=== PATIENT | male | born 1960 | race African-American/Black ===

== ENCOUNTER 2022-04-26 14:35 | Inpatient (IN) | payer OTHER ==
[2022-04-26] MEDS ORDERED: SODIUM CHLORIDE IV ONE (14:59)
[2022-04-26] MEDS ORDERED: PIPERACILLIN/TAZOB 4.5 GM 4.5 GM in DEXTROSE 5%-WATER 100 ML IVPB ONE (15:27)
[2022-04-26] MEDS ORDERED: ACETAMINOPHEN 1000 MG/100 ML BAG IVPB ONE (15:29)
[2022-04-26] MEDS ORDERED: LACTATED RINGERS SOLUTION 1,000 ML/1,000 ML INFUS.BAG IV SCH (15:30)
[2022-04-26] MEDS ORDERED: VANCOMYCIN/WATER 2 GM/400 ML PREMIX BAG IVPB ONE (15:30)
[2022-04-26] MEDS ORDERED: PIPERACILLIN/TAZOB 4.5 GM 4.5 GM/100 ML BAG IVPB ONE ×2 (15:42→15:48)
[2022-04-26] MEDS ORDERED: VANCOMYCIN/WATER FOR INJ (PEG) 2,000 MG/400 ML BAG IVPB ONE (15:43)
[2022-04-26] MEDS ORDERED: ACETAMINOPHEN INJECTION 100 ML IVPB ONE (15:48)
[2022-04-26 16:18] LABS: HEMATOCRIT 31.3 % (35.4-49); MCHC 31.9 g/dl (32.0-35.9); MEAN CELL VOLUME 91.1 fl (80-96); MEAN PLT VOLUME 8.1 fl (7.5-11.1); PLATELET COUNT 200 10^3/uL (134-434); RBC 3.43 M/mm3 (4.00-5.60); RDW 17.6 % (11.9-15.9); WHITE BLOOD COUNT 17.3 K/mm3 (4.0-10.0)
[2022-04-26 16:35] LABS: VENOUS BASE EXCESS -1.6 mmol/L (-2-2); VENOUS PCO2 51.2 mmHg (38-52); VENOUS PH 7.308 (7.310-7.410)
[2022-04-26 16:43] LABS: ALBUMIN 2.6 g/dl (3.4-5.0); CALCIUM 7.3 mg/dL (8.5-10.1)
[2022-04-26 16:44] LABS: BLOOD UREA NITROGEN 25.8 mg/dL (7-18)
[2022-04-26 16:46] LABS: CREATININE 2.8 mg/dL (0.55-1.3)
[2022-04-26 16:48] LABS: TOT PROT 8.1 g/dl (6.4-8.2)
[2022-04-26 17:24] LABS: ANISOCYTOSIS 1+; MACROCYTOSIS 1+; OVALOCYTE 1+
[2022-04-26 18:18] LABS: INR 1.34 (0.83-1.09); PROTHROMBIN TIME (PATIENT) 15.5 SEC (9.7-13.0)
[2022-04-26 18:20] LABS: ACTIVATED PTT 31.4 SECONDS (25.2-36.5)
[2022-04-26 18:39] LABS: BILIRUBIN,TOTAL 0.5 mg/dL (0.2-1)
[2022-04-26] MEDS ORDERED: SODIUM CHLORIDE 0.9% 500 ML INFUS.BAG IV ONE (18:54)
[2022-04-27] MEDS ORDERED: BISACODYL 10 MG SUPP.RECT RC PRN (06:17)
[2022-04-27] MEDS ORDERED: LACTULOSE 20 GM/30 ML UDC (FOR ORAL USE ONLY) PO PRN (06:17)
[2022-04-27] MEDS ORDERED: VANCOMYCIN PREMIX 1.75 GM 1,750 MG/350 ML PIGGYBACK IVPB SCH ×2 (07:00→16:00)
[2022-04-27] MEDS: GABAPENTIN 300 MG CAPSULE PO SCH ×3 (07:27→22:40)
[2022-04-27] MEDS: TAMSULOSIN HCL 0.4 MG CAP PO SCH (08:35)
[2022-04-27 08:37] LABS: BASO % 0.3 % (0-2.0); EOS % 0.6 % (0-4.5); HEMATOCRIT 35.2 % (35.4-49); LYMPH % 3.4 % (8-40); MCH 29.2 pg (25.7-33.7); MCHC 31.1 g/dl (32.0-35.9); MEAN CELL VOLUME 93.9 fl (80-96); MEAN PLT VOLUME 8.6 fl (7.5-11.1); MONO % 6.1 % (3.8-10.2); NEUT % 89.6 % (42.8-82.8); PLATELET COUNT 218 10^3/uL (134-434); RBC 3.75 M/mm3 (4.00-5.60); RDW 17.3 % (11.9-15.9); WHITE BLOOD COUNT 13.6 K/mm3 (4.0-10.0)
[2022-04-27 09:10] LABS: BLOOD UREA NITROGEN 33.5 mg/dL (7-18); CALCIUM 8.1 mg/dL (8.5-10.1)
[2022-04-27 09:13] LABS: CREATININE 3.8 mg/dL (0.55-1.3)
[2022-04-27 09:15] LABS: BILIRUBIN,TOTAL 0.3 mg/dL (0.2-1)
[2022-04-27] MEDS: PIPERACILLIN/TAZOB 2.25 GM 2.25 GM in DEXTROSE 5%-WATER - 50 ML IVPB SCH ×2 (09:23→17:46)
[2022-04-27] MEDS ORDERED: CLOPIDOGREL BISULFATE 75 MG TABLET (FP) PO SCH (10:00)
[2022-04-27] MEDS ORDERED: APIXABAN 2.5 MG TABLET PO SCH (10:00)
[2022-04-27] MEDS ORDERED: PIPERACILLIN/TAZOB 2.25 GM 2.25 GM in DEXTROSE 5%-WATER - 50 ML IVPB SCH (10:00)
[2022-04-27] MEDS ORDERED: FOAM BANDAGE TP SCH (10:00)
[2022-04-27] MEDS: DOCUSATE SODIUM 100 MG CAPSULE (FP) PO SCH (11:10)
[2022-04-27 18:28] LABS: EPI CELLS 5 /uL (0-25.1); HYALINE CASTS 1 /uL (0-3.1); URINE APPEARANCE CLOUDY; URINE BILIRUBIN NEGATIVE (NEGATIVE); URINE COLOR DK YELLOW; URINE GLUCOSE (UA) NEGATIVE (NEGATIVE); URINE KETONE TRACE (NEGATIVE); URINE LEUK ESTERASE 2+ (NEGATIVE); URINE NITRITE NEGATIVE (NEGATIVE); URINE PROTEIN 3+ (NEGATIVE); URINE WBC 482 /uL (0-25.8)
[2022-04-27 18:55] LABS: URINE BACTERIA 160.4 /uL (0-1359); URINE RBC 23.2 /uL (0-23.9)
[2022-04-27] MEDS: HEPARIN NA (PORCINE) 5,000 UNITS/ML 1ML VIAL SQ SCH (22:40)
[2022-04-27] MEDS: LATANOPROST 0.005% OPHTH SOLN 2.5ML BOTTLE OU SCH (22:46)
[2022-04-28] MEDS: PIPERACILLIN/TAZOB 2.25 GM 2.25 GM in DEXTROSE 5%-WATER - 50 ML IVPB SCH (02:36)
[2022-04-28] MEDS: GABAPENTIN 300 MG CAPSULE PO SCH ×3 (05:10→22:10)
[2022-04-28] MEDS: TAMSULOSIN HCL 0.4 MG CAP PO SCH (08:19)
[2022-04-28] MEDS: HEPARIN NA (PORCINE) 5,000 UNITS/ML 1ML VIAL SQ SCH ×2 (09:29→22:10)
[2022-04-28] MEDS: DOCUSATE SODIUM 100 MG CAPSULE (FP) PO SCH (09:38)
[2022-04-28] MEDS ORDERED: LIDOCAINE HCL 1%, 10 MG/ML (20ML VIAL) SQ ONE (11:30)
[2022-04-28] MEDS: NAFCILLIN - 2 GM in DEXTROSE 5%-WATER 100 ML IVPB SCH ×2 (17:21→22:10)
[2022-04-28] MEDS: AMINO ACIDS/PROTEIN HYDROLYS 30 ML LIQUID.PKT PO SCH (18:24)
[2022-04-28] MEDS: LATANOPROST 0.005% OPHTH SOLN 2.5ML BOTTLE OU SCH (22:21)
[2022-04-29] MEDS: NAFCILLIN - 2 GM in DEXTROSE 5%-WATER 100 ML IVPB SCH ×6 (02:38→21:02)
[2022-04-29] MEDS: GABAPENTIN 300 MG CAPSULE PO SCH ×3 (06:12→21:02)
[2022-04-29] MEDS: ACETAMINOPHEN 325 MG TABLET (FP) PO PRN (06:14)
[2022-04-29] MEDS: TAMSULOSIN HCL 0.4 MG CAP PO SCH (08:30)
[2022-04-29] MEDS: AMINO ACIDS/PROTEIN HYDROLYS 30 ML LIQUID.PKT PO SCH ×2 (08:30→17:29)
[2022-04-29] MEDS: HEPARIN NA (PORCINE) 5,000 UNITS/ML 1ML VIAL SQ SCH ×2 (10:49→21:02)
[2022-04-29] MEDS: VITAMIN B COMP W-C 1 EA TABLET (NEPHRO-VITE) PO SCH (10:49)
[2022-04-29] MEDS: DOCUSATE SODIUM 100 MG CAPSULE (FP) PO SCH (10:49)
[2022-04-29] MEDS: LATANOPROST 0.005% OPHTH SOLN 2.5ML BOTTLE OU SCH (21:05)
[2022-04-30] MEDS: NAFCILLIN - 2 GM in DEXTROSE 5%-WATER 100 ML IVPB SCH ×6 (02:21→21:02)
[2022-04-30] MEDS: GABAPENTIN 300 MG CAPSULE PO SCH ×3 (06:31→21:02)
[2022-04-30] MEDS: HEPARIN NA (PORCINE) 5,000 UNITS/ML 1ML VIAL SQ SCH ×2 (09:32→21:01)
[2022-04-30] MEDS: AMINO ACIDS/PROTEIN HYDROLYS 30 ML LIQUID.PKT PO SCH ×3 (09:32→18:09)
[2022-04-30] MEDS: TAMSULOSIN HCL 0.4 MG CAP PO SCH (09:32)
[2022-04-30] MEDS: DOCUSATE SODIUM 100 MG CAPSULE (FP) PO SCH (09:32)
[2022-04-30] MEDS: VITAMIN B COMP W-C 1 EA TABLET (NEPHRO-VITE) PO SCH (09:33)
[2022-04-30 12:35] LABS: BASO % 0.3 % (0-2.0); EOS % 1.3 % (0-4.5); HEMATOCRIT 32.1 % (35.4-49); LYMPH % 19.6 % (8-40); MCH 29.2 pg (25.7-33.7); MCHC 31.1 g/dl (32.0-35.9); MEAN CELL VOLUME 93.7 fl (80-96); MEAN PLT VOLUME 8.2 fl (7.5-11.1); MONO % 9.9 % (3.8-10.2); NEUT % 68.9 % (42.8-82.8); PLATELET COUNT 241 10^3/uL (134-434); RBC 3.42 M/mm3 (4.00-5.60); RDW 17.1 % (11.9-15.9)
[2022-04-30 12:57] LABS: CHLORIDE 97 mmol/L (98-107); SODIUM 131 mmol/L (136-145)
[2022-04-30 12:59] LABS: ALBUMIN 2.6 g/dl (3.4-5.0); ANION GAP 14 MMOL/L (8-16); CO2 21 mmol/L (21-32); GLUCOSE,RANDOM 144 mg/dL (74-106)
[2022-04-30 13:02] LABS: SGOT/AST 6 U/L (15-37); SGPT/ALT 12 U/L (13-61)
[2022-04-30 13:04] LABS: BILIRUBIN,TOTAL 0.6 mg/dL (0.2-1); TOT PROT 6.1 g/dl (6.4-8.2)
[2022-04-30 13:05] LABS: ALK PHOS 63 U/L (45-117); CALCIUM 6.9 mg/dL (8.5-10.1); CREATININE 7.5 mg/dL (0.55-1.3)
[2022-04-30] MEDS: LATANOPROST 0.005% OPHTH SOLN 2.5ML BOTTLE OU SCH (21:02)
[2022-05-01] MEDS: NAFCILLIN - 2 GM in DEXTROSE 5%-WATER 100 ML IVPB SCH ×6 (02:08→21:42)
[2022-05-01] MEDS: GABAPENTIN 300 MG CAPSULE PO SCH ×3 (05:47→21:34)
[2022-05-01] MEDS: TAMSULOSIN HCL 0.4 MG CAP PO SCH (09:42)
[2022-05-01] MEDS: DOCUSATE SODIUM 100 MG CAPSULE (FP) PO SCH (09:42)
[2022-05-01] MEDS: VITAMIN B COMP W-C 1 EA TABLET (NEPHRO-VITE) PO SCH (09:42)
[2022-05-01] MEDS: HEPARIN NA (PORCINE) 5,000 UNITS/ML 1ML VIAL SQ SCH ×2 (09:42→21:34)
[2022-05-01] MEDS: AMINO ACIDS/PROTEIN HYDROLYS 30 ML LIQUID.PKT PO SCH ×2 (09:43→17:30)
[2022-05-01] MEDS: BACITRACIN ZINC 15 GM TUBE TOPICAL OINTMENT TP SCH ×2 (14:30→21:33)
[2022-05-01] MEDS: LACTOBACILLUS ACIDOPHILUS 1 TABLET PO SCH (17:30)
[2022-05-01] MEDS: LATANOPROST 0.005% OPHTH SOLN 2.5ML BOTTLE OU SCH (21:36)
[2022-05-02] MEDS: NAFCILLIN - 2 GM in DEXTROSE 5%-WATER 100 ML IVPB SCH ×5 (02:56→18:30)
[2022-05-02] MEDS: GABAPENTIN 300 MG CAPSULE PO SCH ×2 (06:15→14:00)
[2022-05-02] MEDS: AMINO ACIDS/PROTEIN HYDROLYS 30 ML LIQUID.PKT PO SCH ×2 (08:30→17:30)
[2022-05-02] MEDS: TAMSULOSIN HCL 0.4 MG CAP PO SCH (08:36)
[2022-05-02] MEDS: BACITRACIN ZINC 15 GM TUBE TOPICAL OINTMENT TP SCH (10:00)
[2022-05-02] MEDS: HEPARIN NA (PORCINE) 5,000 UNITS/ML 1ML VIAL SQ SCH (10:00)
[2022-05-02] MEDS: VITAMIN B COMP W-C 1 EA TABLET (NEPHRO-VITE) PO SCH (10:00)
[2022-05-02] MEDS: DOCUSATE SODIUM 100 MG CAPSULE (FP) PO SCH (10:00)
[2022-05-02] MEDS: LACTOBACILLUS ACIDOPHILUS 1 TABLET PO SCH (10:00)
[2022-05-02] MEDS ORDERED: SODIUM CHLORIDE 250 ML IV PRN ×2 (12:42→20:03)
[2022-05-02] MEDS: ACETAMINOPHEN 325 MG TABLET (FP) PO PRN (15:53)
[2022-05-02] MEDS ORDERED: LIDOCAINE HCL 1%, 10 MG/ML (20ML VIAL) NR ONE ×3 (16:54→18:43)
[2022-05-02] MEDS ORDERED: ceFAZolin SODIUM 1 GM VIAL IVPB ONE (16:54)
[2022-05-02] MEDS ORDERED: LIDOCAINE HCL 1%, 10 MG/ML (20ML VIAL) ONE ×2 (17:01→19:14)
[2022-05-02] MEDS ORDERED: HEPARIN NA (PORCINE) 5,000 UNITS/ML 1ML VIAL ONE (17:01)
[2022-05-02] MEDS ORDERED: HEPARIN NA (PORCINE) 5,000 UNITS/ML 1ML VIAL SQ ONE ×2 (17:14→18:45)
[2022-05-02 17:30] LABS: HEMATOCRIT 28.3 % (35.4-49); HEMOGLOBIN 9.2 GM/dL (11.7-16.9); MCH 29.3 pg (25.7-33.7); MCHC 32.3 g/dl (32.0-35.9); MEAN CELL VOLUME 90.9 fl (80-96); MEAN PLT VOLUME 7.8 fl (7.5-11.1); PLATELET COUNT 311 10^3/uL (134-434); RBC 3.12 M/mm3 (4.00-5.60); RDW 16.7 % (11.9-15.9)
[2022-05-02 17:46] LABS: CHLORIDE 98 mmol/L (98-107); SODIUM 132 mmol/L (136-145)
[2022-05-02 17:50] LABS: ALBUMIN 2.7 g/dl (3.4-5.0); ANION GAP 19 MMOL/L (8-16); CO2 15 mmol/L (21-32); GLUCOSE,RANDOM 84 mg/dL (74-106)
[2022-05-02 17:52] LABS: SGOT/AST 18 U/L (15-37); SGPT/ALT 28 U/L (13-61)
[2022-05-02 17:53] LABS: BILIRUBIN,TOTAL 1.2 mg/dL (0.2-1)
[2022-05-02 17:54] LABS: TOT PROT 6.3 g/dl (6.4-8.2)
[2022-05-02 17:55] LABS: ALK PHOS 69 U/L (45-117)
[2022-05-02 17:57] LABS: BLOOD UREA NITROGEN 98.6 mg/dL (7-18); CALCIUM 6.8 mg/dL (8.5-10.1); CREATININE 8.8 mg/dL (0.55-1.3)
[2022-05-02] MEDS ORDERED: MIDAZOLAM HCL 2 MG/2 ML SINGLE DOSE VIAL ONE (18:27)
[2022-05-02] MEDS ORDERED: LIDOCAINE HCL 1%, 10 MG/ML (20ML VIAL) INF ONE ×2 (19:21)
[2022-05-02] MEDS ORDERED: PROMETHAZINE HCL 25 MG/1 ML VIAL IVPB PRN (19:45)
[2022-05-02] MEDS ORDERED: LACTATED RINGERS SOLUTION 1,000 ML IV SCH (19:45)
[2022-05-02] MEDS ORDERED: ONDANSETRON 4 MG/2 ML VIAL IVPUSH PRN (19:45)
[2022-05-02] MEDS ORDERED: LACTULOSE 20 GM/30 ML UDC (FOR ORAL USE ONLY) PO PRN (20:03)
[2022-05-02] MEDS ORDERED: BISACODYL 10 MG SUPP.RECT RC PRN (20:03)
[2022-05-03] MEDS: BACITRACIN ZINC 15 GM TUBE TOPICAL OINTMENT TP SCH ×2 (00:41→13:09)
[2022-05-03] MEDS: NAFCILLIN - 2 GM in DEXTROSE 5%-WATER 100 ML IVPB SCH ×8 (00:43→22:00)
[2022-05-03] MEDS: HEPARIN NA (PORCINE) 5,000 UNITS/ML 1ML VIAL SQ SCH ×3 (00:43→17:49)
[2022-05-03] MEDS: GABAPENTIN 300 MG CAPSULE PO SCH ×2 (00:44→06:49)
[2022-05-03] MEDS: LATANOPROST 0.005% OPHTH SOLN 2.5ML BOTTLE OU SCH (06:45)
[2022-05-03] MEDS ORDERED: SODIUM CHLORIDE 250 ML IV PRN (07:24)
[2022-05-03 11:22] LABS: ARTERIAL BLD GAS O2 SATURATION 90.8 % (95-98); ARTERIAL BLOOD GAS BASE EXCESS -9.6 mmol/L (-2-2)
[2022-05-03 11:23] LABS: ALLENS TEST POSITIVE
[2022-05-03 11:25] LABS: ARTERIAL BLOOD GAS pH 7.164 (7.350-7.450)
[2022-05-03 12:35] LABS: HEMATOCRIT 22.7 % (35.4-49); HEMOGLOBIN 7.4 GM/dL (11.7-16.9); MCH 29.7 pg (25.7-33.7); MCHC 32.7 g/dl (32.0-35.9); MEAN CELL VOLUME 90.7 fl (80-96); MEAN PLT VOLUME 7.5 fl (7.5-11.1); PLATELET COUNT 256 10^3/uL (134-434); RBC 2.51 M/mm3 (4.00-5.60); RDW 16.8 % (11.9-15.9); WHITE BLOOD COUNT 8.3 K/mm3 (4.0-10.0)
[2022-05-03 12:47] LABS: CHLORIDE 100 mmol/L (98-107); SODIUM 134 mmol/L (136-145)
[2022-05-03 12:49] LABS: ANION GAP 11 MMOL/L (8-16); BLOOD UREA NITROGEN 93.2 mg/dL (7-18); CO2 23 mmol/L (21-32); GLUCOSE,RANDOM 119 mg/dL (74-106)
[2022-05-03 12:52] LABS: CALCIUM 6.6 mg/dL (8.5-10.1); CREATININE 7.4 mg/dL (0.55-1.3)
[2022-05-03] MEDS: AMINO ACIDS/PROTEIN HYDROLYS 30 ML LIQUID.PKT PO SCH ×2 (13:08→17:50)
[2022-05-03 14:13] LABS: ANISOCYTOSIS 0; HELMET CELLS 0; HOWELL-JOLLY BODIES 0; MACROCYTOSIS 0; OVALOCYTE 0; ROULEAU 0; SICKELED CELLS 0; TARGET CELLS 0; TEAR DROP CELLS 0; TOXIC GRANULATION 0
[2022-05-03] MEDS ORDERED: EPOETIN ALFA 10,000 UNIT/1 ML VIAL IVPUSH ONE (15:00)
[2022-05-03 15:24] LABS: BLOOD UREA NITROGEN 69.8 mg/dL (7-18)
[2022-05-03 15:27] LABS: CREATININE 5.5 mg/dL (0.55-1.3)
[2022-05-03 16:42] LABS: VENOUS BASE EXCESS -4.4 mmol/L (-2-2); VENOUS O2 SATURATION 50.6 % (70-80); VENOUS PCO2 55.2 mmHg (38-52); VENOUS PH 7.239 (7.310-7.410)
[2022-05-03] MEDS: TAMSULOSIN HCL 0.4 MG CAP PO SCH (17:18)
[2022-05-03] MEDS: LACTOBACILLUS ACIDOPHILUS 1 TABLET PO SCH (17:18)
[2022-05-03 17:19] LABS: PHOSPHOROUS 6.1 mg/dL (2.5-4.9)
[2022-05-03] MEDS: DOCUSATE SODIUM 100 MG CAPSULE (FP) PO SCH (17:19)
[2022-05-03] MEDS: VITAMIN B COMP W-C 1 EA TABLET (NEPHRO-VITE) PO SCH (17:20)
[2022-05-03 17:42] VITALS: BMI 47.6
[2022-05-03 20:31] LABS: HEMATOCRIT 19.5 % (35.4-49); MCH 29.7 pg (25.7-33.7); MEAN PLT VOLUME 7.6 fl (7.5-11.1); PLATELET COUNT 232 10^3/uL (134-434); RBC 2.17 M/mm3 (4.00-5.60); RDW 16.5 % (11.9-15.9)
[2022-05-03 20:33] LABS: HEMOGLOBIN 6.4 GM/dL (11.7-16.9)
[2022-05-03 22:08] LABS: ANISOCYTOSIS 1+; MACROCYTOSIS 0; OVALOCYTE 1+; TEAR DROP CELLS 1+
[2022-05-04] MEDS: LATANOPROST 0.005% OPHTH SOLN 2.5ML BOTTLE OU SCH (03:06)
[2022-05-04 03:41] LABS: HEMATOCRIT 20.9 % (35.4-49); MCHC 33.4 g/dl (32.0-35.9); MEAN CELL VOLUME 89.9 fl (80-96); MEAN PLT VOLUME 7.5 fl (7.5-11.1); PLATELET COUNT 239 10^3/uL (134-434); RBC 2.33 M/mm3 (4.00-5.60); RDW 16.4 % (11.9-15.9); WHITE BLOOD COUNT 9.5 K/mm3 (4.0-10.0)
[2022-05-04 04:02] LABS: ALBUMIN 2.5 g/dl (3.4-5.0); BLOOD UREA NITROGEN 69.5 mg/dL (7-18)
[2022-05-04 04:05] LABS: CREATININE 5.3 mg/dL (0.55-1.3)
[2022-05-04 04:07] LABS: BILIRUBIN,TOTAL 0.8 mg/dL (0.2-1); TOT PROT 5.9 g/dl (6.4-8.2)
[2022-05-04] MEDS: CALCIUM CARBONATE 650 MG TABLET PO SCH ×3 (06:26→22:53)
[2022-05-04] MEDS: NAFCILLIN - 2 GM in DEXTROSE 5%-WATER 100 ML IVPB SCH ×5 (06:28→21:46)
[2022-05-04] MEDS: CALCITRIOL 0.25 MCG CAPSULE (FP) PO SCH ×3 (06:28→22:53)
[2022-05-04] MEDS: BACITRACIN ZINC 15 GM TUBE TOPICAL OINTMENT TP SCH ×3 (07:36→22:54)
[2022-05-04 07:52] LABS: HEMATOCRIT 19.8 % (35.4-49); MCH 30.4 pg (25.7-33.7); MCHC 33.9 g/dl (32.0-35.9); MEAN CELL VOLUME 89.6 fl (80-96); MEAN PLT VOLUME 7.2 fl (7.5-11.1); PLATELET COUNT 227 10^3/uL (134-434); RBC 2.21 M/mm3 (4.00-5.60); RDW 16.2 % (11.9-15.9); WHITE BLOOD COUNT 9.4 K/mm3 (4.0-10.0)
[2022-05-04 07:56] LABS: HEMOGLOBIN 6.7 GM/dL (11.7-16.9)
[2022-05-04 08:53] LABS: BILIRUBIN,TOTAL 0.8 mg/dL (0.2-1)
[2022-05-04 08:54] LABS: CALCIUM 7.2 mg/dL (8.5-10.1); TOT PROT 5.8 g/dl (6.4-8.2)
[2022-05-04 08:55] LABS: ALBUMIN 2.5 g/dl (3.4-5.0)
[2022-05-04 08:59] LABS: CREATININE 5.7 mg/dL (0.55-1.3)
[2022-05-04 09:20] LABS: ANISOCYTOSIS 0; HELMET CELLS 0; HOWELL-JOLLY BODIES 0; MACROCYTOSIS 0; OVALOCYTE 0; ROULEAU 0; SICKELED CELLS 0; TARGET CELLS 0; TEAR DROP CELLS 0; TOXIC GRANULATION 0
[2022-05-04] MEDS: DOCUSATE SODIUM 100 MG CAPSULE (FP) PO SCH (10:10)
[2022-05-04] MEDS: AMINO ACIDS/PROTEIN HYDROLYS 30 ML LIQUID.PKT PO SCH ×2 (10:11→18:10)
[2022-05-04] MEDS: TAMSULOSIN HCL 0.4 MG CAP PO SCH (10:11)
[2022-05-04] MEDS: LACTOBACILLUS ACIDOPHILUS 1 TABLET PO SCH (11:46)
[2022-05-04] MEDS: VITAMIN B COMP W-C 1 EA TABLET (NEPHRO-VITE) PO SCH (11:47)
[2022-05-05] MEDS: LATANOPROST 0.005% OPHTH SOLN 2.5ML BOTTLE OU SCH ×2 (02:02→22:00)
[2022-05-05] MEDS: NAFCILLIN - 2 GM in DEXTROSE 5%-WATER 100 ML IVPB SCH ×6 (02:18→22:00)
[2022-05-05 07:52] LABS: HEMATOCRIT 23.3 % (35.4-49); HEMOGLOBIN 7.6 GM/dL (11.7-16.9); MCH 29.4 pg (25.7-33.7); MCHC 32.5 g/dl (32.0-35.9); MEAN CELL VOLUME 90.5 fl (80-96); MEAN PLT VOLUME 7.6 fl (7.5-11.1); PLATELET COUNT 298 10^3/uL (134-434); RBC 2.58 M/mm3 (4.00-5.60); RDW 16.7 % (11.9-15.9)
[2022-05-05 08:16] LABS: CALCIUM 7.4 mg/dL (8.5-10.1)
[2022-05-05 08:17] LABS: ALBUMIN 2.5 g/dl (3.4-5.0)
[2022-05-05 08:20] LABS: CREATININE 6.5 mg/dL (0.55-1.3); PHOSPHOROUS 8.6 mg/dL (2.5-4.9)
[2022-05-05 08:21] LABS: BILIRUBIN,TOTAL 1.4 mg/dL (0.2-1)
[2022-05-05 08:27] LABS: BLOOD UREA NITROGEN 87.8 mg/dL (7-18)
[2022-05-05] MEDS: CALCITRIOL 0.25 MCG CAPSULE (FP) PO SCH ×2 (09:14→21:53)
[2022-05-05] MEDS: VITAMIN B COMP W-C 1 EA TABLET (NEPHRO-VITE) PO SCH (09:14)
[2022-05-05] MEDS: CALCIUM CARBONATE 650 MG TABLET PO SCH ×2 (09:15→21:52)
[2022-05-05] MEDS: BACITRACIN ZINC 15 GM TUBE TOPICAL OINTMENT TP SCH ×2 (09:15→22:00)
[2022-05-05] MEDS: DOCUSATE SODIUM 100 MG CAPSULE (FP) PO SCH (09:15)
[2022-05-05] MEDS: TAMSULOSIN HCL 0.4 MG CAP PO SCH (09:16)
[2022-05-05] MEDS: LACTOBACILLUS ACIDOPHILUS 1 TABLET PO SCH (09:16)
[2022-05-05] MEDS: AMINO ACIDS/PROTEIN HYDROLYS 30 ML LIQUID.PKT PO SCH ×2 (09:16→17:30)
[2022-05-05 11:18] LABS: ARTERIAL BLD GAS O2 SATURATION 74.7 % (95-98); ARTERIAL BLOOD GAS BASE EXCESS -5.1 mmol/L (-2-2); ARTERIAL BLOOD GAS PO2 50.4 mmHg (80-100)
[2022-05-05 11:19] LABS: ALLENS TEST POSITIVE
[2022-05-05 11:24] LABS: VENT MODE S/T; VENT RATE 14
[2022-05-05 11:30] LABS: ARTERIAL BLOOD GAS pH 7.171 (7.350-7.450)
[2022-05-05] MEDS: ALBUTEROL SO4 2.5/IPRATROPIUM 0.5 INH SOL 3 ML VIAL.NEB. NEB SCH ×2 (15:10→19:55)
[2022-05-05] MEDS: FUROSEMIDE 40 MG TABLET (FP) PO SCH (15:46)
[2022-05-06] MEDS: NAFCILLIN - 2 GM in DEXTROSE 5%-WATER 100 ML IVPB SCH ×6 (02:13→23:58)
[2022-05-06] MEDS: ALBUTEROL SO4 2.5/IPRATROPIUM 0.5 INH SOL 3 ML VIAL.NEB. NEB SCH ×4 (08:03→20:56)
[2022-05-06 08:21] LABS: HEMATOCRIT 20.8 % (35.4-49); MCH 29.6 pg (25.7-33.7); MCHC 32.9 g/dl (32.0-35.9); MEAN CELL VOLUME 89.8 fl (80-96); MEAN PLT VOLUME 7.3 fl (7.5-11.1); PLATELET COUNT 317 10^3/uL (134-434); RBC 2.32 M/mm3 (4.00-5.60); RDW 16.8 % (11.9-15.9); WHITE BLOOD COUNT 8.9 K/mm3 (4.0-10.0)
[2022-05-06 08:50] LABS: HEMOGLOBIN 6.9 GM/dL (11.7-16.9)
[2022-05-06] MEDS: TAMSULOSIN HCL 0.4 MG CAP PO SCH (09:08)
[2022-05-06] MEDS: AMINO ACIDS/PROTEIN HYDROLYS 30 ML LIQUID.PKT PO SCH ×2 (09:08→16:47)
[2022-05-06] MEDS: DOCUSATE SODIUM 100 MG CAPSULE (FP) PO SCH (09:09)
[2022-05-06] MEDS: CALCIUM CARBONATE 650 MG TABLET PO SCH ×2 (09:09→21:31)
[2022-05-06] MEDS: LACTOBACILLUS ACIDOPHILUS 1 TABLET PO SCH (09:09)
[2022-05-06] MEDS: VITAMIN B COMP W-C 1 EA TABLET (NEPHRO-VITE) PO SCH (09:10)
[2022-05-06] MEDS: CALCITRIOL 0.25 MCG CAPSULE (FP) PO SCH ×2 (09:10→21:32)
[2022-05-06] MEDS: FUROSEMIDE 40 MG TABLET (FP) PO SCH (09:10)
[2022-05-06] MEDS: BACITRACIN ZINC 15 GM TUBE TOPICAL OINTMENT TP SCH ×2 (09:28→22:00)
[2022-05-06 10:28] LABS: ANISOCYTOSIS 1+; MACROCYTOSIS 0; OVALOCYTE 1+
[2022-05-06] MEDS: SODIUM CHLORIDE 250 ML IV PRN ×2 (13:50→17:20)
[2022-05-06 14:38] LABS: VENOUS O2 SATURATION 73.7 % (70-80); VENOUS PCO2 65.6 mmHg (38-52); VENOUS PH 7.1 (7.310-7.410)
[2022-05-06] MEDS ORDERED: EPOETIN ALFA-EPBX 10,000 UNIT/ML VIAL SQ ONE (16:15)
[2022-05-06] MEDS: LATANOPROST 0.005% OPHTH SOLN 2.5ML BOTTLE OU SCH (21:32)
[2022-05-07] MEDS: NAFCILLIN - 2 GM in DEXTROSE 5%-WATER 100 ML IVPB SCH ×7 (00:49→21:57)
[2022-05-07] MEDS: ALBUTEROL SO4 2.5/IPRATROPIUM 0.5 INH SOL 3 ML VIAL.NEB. NEB SCH ×4 (07:15→20:52)
[2022-05-07] MEDS: LACTOBACILLUS ACIDOPHILUS 1 TABLET PO SCH (09:53)
[2022-05-07] MEDS: CALCIUM CARBONATE 650 MG TABLET PO SCH ×2 (09:53→21:56)
[2022-05-07] MEDS: TAMSULOSIN HCL 0.4 MG CAP PO SCH (09:53)
[2022-05-07] MEDS: AMINO ACIDS/PROTEIN HYDROLYS 30 ML LIQUID.PKT PO SCH ×2 (09:53→17:27)
[2022-05-07] MEDS: VITAMIN B COMP W-C 1 EA TABLET (NEPHRO-VITE) PO SCH (09:54)
[2022-05-07] MEDS: FUROSEMIDE 40 MG TABLET (FP) PO SCH (09:54)
[2022-05-07] MEDS: CALCITRIOL 0.25 MCG CAPSULE (FP) PO SCH ×2 (09:54→21:57)
[2022-05-07] MEDS: DOCUSATE SODIUM 100 MG CAPSULE (FP) PO SCH (09:54)
[2022-05-07] MEDS: BACITRACIN ZINC 15 GM TUBE TOPICAL OINTMENT TP SCH ×2 (10:10→21:58)
[2022-05-07 12:30] LABS: HEMOGLOBIN 8.8 GM/dL (11.7-16.9); MCH 30.2 pg (25.7-33.7); MEAN PLT VOLUME 6.9 fl (7.5-11.1); PLATELET COUNT 321 10^3/uL (134-434); RBC 2.92 M/mm3 (4.00-5.60); RDW 15.9 % (11.9-15.9); WHITE BLOOD COUNT 12.2 K/mm3 (4.0-10.0)
[2022-05-07 12:51] LABS: CALCIUM 7.7 mg/dL (8.5-10.1)
[2022-05-07 12:52] LABS: MAGNESIUM 1.8 mg/dL (1.8-2.4)
[2022-05-07 12:55] LABS: CREATININE 5.1 mg/dL (0.55-1.3)
[2022-05-07] MEDS ORDERED: PANTOPRAZOLE SODIUM 40 MG VIAL IVPUSH ONE (16:00)
[2022-05-07] MEDS ORDERED: PANTOPRAZOLE SODIUM 80 MG in SODIUM CHLORIDE 100 ML IVPB SCH (17:45)
[2022-05-07] MEDS ORDERED: PANTOPRAZOLE SODIUM 160 MG in SODIUM CHLORIDE 290 ML IVPB SCH (18:15)
[2022-05-07] MEDS ORDERED: SODIUM CHLORIDE 250 ML IV PRN (18:30)
[2022-05-07] MEDS: PANTOPRAZOLE SODIUM 160 MG in SODIUM CHLORIDE 290 ML IVPB SCH (21:56)
[2022-05-07] MEDS: LATANOPROST 0.005% OPHTH SOLN 2.5ML BOTTLE OU SCH (21:57)
[2022-05-07] MEDS ORDERED: PANTOPRAZOLE SODIUM 40 MG VIAL IVPUSH SCH (22:00)
[2022-05-08] MEDS: NAFCILLIN - 2 GM in DEXTROSE 5%-WATER 100 ML IVPB SCH ×6 (01:11→22:55)
[2022-05-08] MEDS: ALBUTEROL SO4 2.5/IPRATROPIUM 0.5 INH SOL 3 ML VIAL.NEB. NEB SCH ×4 (07:14→20:05)
[2022-05-08] MEDS: DOCUSATE SODIUM 100 MG CAPSULE (FP) PO SCH (10:20)
[2022-05-08] MEDS: CALCITRIOL 0.25 MCG CAPSULE (FP) PO SCH ×2 (10:26→22:52)
[2022-05-08] MEDS: FUROSEMIDE 40 MG TABLET (FP) PO SCH (10:26)
[2022-05-08] MEDS: TAMSULOSIN HCL 0.4 MG CAP PO SCH (10:26)
[2022-05-08] MEDS: VITAMIN B COMP W-C 1 EA TABLET (NEPHRO-VITE) PO SCH (10:27)
[2022-05-08] MEDS: LACTOBACILLUS ACIDOPHILUS 1 TABLET PO SCH (10:27)
[2022-05-08] MEDS: BACITRACIN ZINC 15 GM TUBE TOPICAL OINTMENT TP SCH ×2 (10:27→22:54)
[2022-05-08] MEDS: AMINO ACIDS/PROTEIN HYDROLYS 30 ML LIQUID.PKT PO SCH ×2 (10:27→18:15)
[2022-05-08] MEDS: CALCIUM CARBONATE 650 MG TABLET PO SCH ×2 (10:28→22:53)
[2022-05-08] MEDS ORDERED: EPOETIN ALFA-EPBX 20,000 UNIT/ML VIAL IVPUSH ONE (14:15)
[2022-05-08 14:36] LABS: BASO % 0.5 % (0-2.0); EOS % 1.6 % (0-4.5); HEMATOCRIT 25.9 % (35.4-49); HEMOGLOBIN 8.6 GM/dL (11.7-16.9); LYMPH % 8.5 % (8-40); MCH 30.2 pg (25.7-33.7); MCHC 33.4 g/dl (32.0-35.9); MEAN CELL VOLUME 90.6 fl (80-96); MEAN PLT VOLUME 7.1 fl (7.5-11.1); MONO % 7.4 % (3.8-10.2); PLATELET COUNT 333 10^3/uL (134-434); RBC 2.86 M/mm3 (4.00-5.60); RDW 16.7 % (11.9-15.9); WHITE BLOOD COUNT 14.1 K/mm3 (4.0-10.0)
[2022-05-08 15:11] LABS: ALBUMIN 2.4 g/dl (3.4-5.0); CALCIUM 7.7 mg/dL (8.5-10.1)
[2022-05-08 15:12] LABS: BLOOD UREA NITROGEN 61.2 mg/dL (7-18); MAGNESIUM 1.8 mg/dL (1.8-2.4)
[2022-05-08 15:14] LABS: PHOSPHOROUS 6.8 mg/dL (2.5-4.9)
[2022-05-08 15:15] LABS: CREATININE 5.9 mg/dL (0.55-1.3)
[2022-05-08 15:16] LABS: BILIRUBIN,TOTAL 1.4 mg/dL (0.2-1); TOT PROT 6.1 g/dl (6.4-8.2)
[2022-05-08] MEDS ORDERED: MAGNESIUM SULF 50% (8.12 MEQ/2 ML-1 GM VIAL) IVPB ONE (17:30)
[2022-05-08] MEDS: POTASSIUM CHLORIDE TABS 20 MEQ TABLET.ER (FP) PO SCH (18:15)
[2022-05-08] MEDS: PANTOPRAZOLE SODIUM 160 MG in SODIUM CHLORIDE 290 ML IVPB SCH (19:29)
[2022-05-08] MEDS: LATANOPROST 0.005% OPHTH SOLN 2.5ML BOTTLE OU SCH (22:51)
[2022-05-09] MEDS: NAFCILLIN - 2 GM in DEXTROSE 5%-WATER 100 ML IVPB SCH ×6 (02:12→22:03)
[2022-05-09] MEDS: ALBUTEROL SO4 2.5/IPRATROPIUM 0.5 INH SOL 3 ML VIAL.NEB. NEB SCH ×4 (07:36→20:01)
[2022-05-09] MEDS: VITAMIN B COMP W-C 1 EA TABLET (NEPHRO-VITE) PO SCH (09:05)
[2022-05-09] MEDS: CALCITRIOL 0.25 MCG CAPSULE (FP) PO SCH ×2 (09:05→22:02)
[2022-05-09] MEDS: FUROSEMIDE 40 MG TABLET (FP) PO SCH (09:05)
[2022-05-09] MEDS: AMINO ACIDS/PROTEIN HYDROLYS 30 ML LIQUID.PKT PO SCH ×2 (09:05→18:55)
[2022-05-09] MEDS: BACITRACIN ZINC 15 GM TUBE TOPICAL OINTMENT TP SCH ×2 (09:05→22:00)
[2022-05-09] MEDS: LACTOBACILLUS ACIDOPHILUS 1 TABLET PO SCH (09:05)
[2022-05-09] MEDS: DOCUSATE SODIUM 100 MG CAPSULE (FP) PO SCH (09:05)
[2022-05-09] MEDS: CALCIUM CARBONATE 650 MG TABLET PO SCH ×2 (09:05→22:02)
[2022-05-09] MEDS: TAMSULOSIN HCL 0.4 MG CAP PO SCH (09:05)
[2022-05-09] MEDS: POTASSIUM CHLORIDE TABS 20 MEQ TABLET.ER (FP) PO SCH (09:13)
[2022-05-09] MEDS: ACETAMINOPHEN 325 MG TABLET (FP) PO PRN (11:01)
[2022-05-09] MEDS: PANTOPRAZOLE SODIUM 160 MG in SODIUM CHLORIDE 290 ML IVPB SCH ×2 (12:33→16:34)
[2022-05-09] MEDS: LATANOPROST 0.005% OPHTH SOLN 2.5ML BOTTLE OU SCH (22:08)
[2022-05-10] MEDS: NAFCILLIN - 2 GM in DEXTROSE 5%-WATER 100 ML IVPB SCH ×6 (02:00→22:12)
[2022-05-10] MEDS: ALBUTEROL SO4 2.5/IPRATROPIUM 0.5 INH SOL 3 ML VIAL.NEB. NEB SCH ×4 (07:47→20:05)
[2022-05-10] MEDS: AMINO ACIDS/PROTEIN HYDROLYS 30 ML LIQUID.PKT PO SCH ×2 (08:20→17:42)
[2022-05-10] MEDS: TAMSULOSIN HCL 0.4 MG CAP PO SCH (08:20)
[2022-05-10] MEDS: ACETAMINOPHEN 325 MG TABLET (FP) PO PRN (08:26)
[2022-05-10 08:37] LABS: BASO % 0.5 % (0-2.0); HEMATOCRIT 26.9 % (35.4-49); HEMOGLOBIN 8.7 GM/dL (11.7-16.9); LYMPH % 15.4 % (8-40); MCH 29.7 pg (25.7-33.7); MCHC 32.4 g/dl (32.0-35.9); MEAN CELL VOLUME 91.7 fl (80-96); MEAN PLT VOLUME 7.2 fl (7.5-11.1); MONO % 6.7 % (3.8-10.2); NEUT % 75.4 % (42.8-82.8); PLATELET COUNT 358 10^3/uL (134-434); RBC 2.93 M/mm3 (4.00-5.60); RDW 16.7 % (11.9-15.9); WHITE BLOOD COUNT 14.3 K/mm3 (4.0-10.0)
[2022-05-10 08:59] LABS: ALBUMIN 2.3 g/dl (3.4-5.0); BLOOD UREA NITROGEN 41.4 mg/dL (7-18); CALCIUM 8.1 mg/dL (8.5-10.1); MAGNESIUM 2.1 mg/dL (1.8-2.4)
[2022-05-10 09:02] LABS: CREATININE 5.1 mg/dL (0.55-1.3)
[2022-05-10 09:04] LABS: BILIRUBIN,TOTAL 1.3 mg/dL (0.2-1); TOT PROT 6.2 g/dl (6.4-8.2)
[2022-05-10] MEDS: CALCITRIOL 0.25 MCG CAPSULE (FP) PO SCH ×2 (09:16→22:11)
[2022-05-10] MEDS: DOCUSATE SODIUM 100 MG CAPSULE (FP) PO SCH (09:17)
[2022-05-10] MEDS: VITAMIN B COMP W-C 1 EA TABLET (NEPHRO-VITE) PO SCH (09:17)
[2022-05-10] MEDS: BACITRACIN ZINC 15 GM TUBE TOPICAL OINTMENT TP SCH (09:17)
[2022-05-10] MEDS: PANTOPRAZOLE SODIUM 160 MG in SODIUM CHLORIDE 290 ML IVPB SCH ×2 (09:17→17:42)
[2022-05-10] MEDS: LACTOBACILLUS ACIDOPHILUS 1 TABLET PO SCH (09:17)
[2022-05-10] MEDS: POTASSIUM CHLORIDE TABS 20 MEQ TABLET.ER (FP) PO SCH (09:20)
[2022-05-10] MEDS: CALCIUM CARBONATE 650 MG TABLET PO SCH ×2 (09:21→22:11)
[2022-05-10] MEDS: FUROSEMIDE 40 MG TABLET (FP) PO SCH (09:21)
[2022-05-10] MEDS ORDERED: SODIUM CHLORIDE 250 ML IV PRN (13:43)
[2022-05-10] MEDS ORDERED: EPOETIN ALFA-EPBX 20,000 UNIT/ML VIAL SQ ONE (14:15)
[2022-05-11] MEDS: BACITRACIN ZINC 15 GM TUBE TOPICAL OINTMENT TP SCH ×3 (02:42→22:59)
[2022-05-11] MEDS: NAFCILLIN - 2 GM in DEXTROSE 5%-WATER 100 ML IVPB SCH ×4 (02:43→14:23)
[2022-05-11] MEDS: LATANOPROST 0.005% OPHTH SOLN 2.5ML BOTTLE OU SCH ×3 (07:19→23:00)
[2022-05-11] MEDS: ALBUTEROL SO4 2.5/IPRATROPIUM 0.5 INH SOL 3 ML VIAL.NEB. NEB SCH ×4 (07:23→20:05)
[2022-05-11] MEDS: TAMSULOSIN HCL 0.4 MG CAP PO SCH (07:55)
[2022-05-11] MEDS: AMINO ACIDS/PROTEIN HYDROLYS 30 ML LIQUID.PKT PO SCH ×2 (07:55→17:20)
[2022-05-11] MEDS: VITAMIN B COMP W-C 1 EA TABLET (NEPHRO-VITE) PO SCH (09:50)
[2022-05-11] MEDS: CALCITRIOL 0.25 MCG CAPSULE (FP) PO SCH ×2 (09:50→22:55)
[2022-05-11] MEDS: LACTOBACILLUS ACIDOPHILUS 1 TABLET PO SCH (09:50)
[2022-05-11] MEDS: FUROSEMIDE 40 MG TABLET (FP) PO SCH (09:50)
[2022-05-11] MEDS: POTASSIUM CHLORIDE TABS 20 MEQ TABLET.ER (FP) PO SCH (09:51)
[2022-05-11] MEDS: CALCIUM CARBONATE 650 MG TABLET PO SCH ×2 (09:51→22:55)
[2022-05-11] MEDS: DOCUSATE SODIUM 100 MG CAPSULE (FP) PO SCH (09:51)
[2022-05-11] MEDS ORDERED: CEFAZOLIN 3 GM in DEXTROSE 5%-WATER - 100 ML IVPB ONE (15:00)
[2022-05-11] MEDS: POLYETHYLENE GLYCOL (HEALTHYLAX) 3350 17 GM PACKET PO SCH (22:56)
[2022-05-12] MEDS: ALBUTEROL SO4 2.5/IPRATROPIUM 0.5 INH SOL 3 ML VIAL.NEB. NEB SCH ×4 (07:15→19:55)
[2022-05-12] MEDS: ACETAMINOPHEN 325 MG TABLET (FP) PO PRN ×2 (07:49→22:03)
[2022-05-12] MEDS: AMINO ACIDS/PROTEIN HYDROLYS 30 ML LIQUID.PKT PO SCH ×2 (07:50→18:19)
[2022-05-12] MEDS: TAMSULOSIN HCL 0.4 MG CAP PO SCH (07:50)
[2022-05-12 08:18] LABS: BASO % 0.8 % (0-2.0); EOS % 3.2 % (0-4.5); HEMATOCRIT 26.6 % (35.4-49); HEMOGLOBIN 9.3 GM/dL (11.7-16.9); LYMPH % 15.9 % (8-40); MCH 31.4 pg (25.7-33.7); MCHC 34.8 g/dl (32.0-35.9); MEAN CELL VOLUME 90.3 fl (80-96); MEAN PLT VOLUME 6.8 fl (7.5-11.1); MONO % 6.9 % (3.8-10.2); NEUT % 73.2 % (42.8-82.8); PLATELET COUNT 355 10^3/uL (134-434); RBC 2.95 M/mm3 (4.00-5.60); RDW 16.7 % (11.9-15.9); WHITE BLOOD COUNT 9.8 K/mm3 (4.0-10.0)
[2022-05-12 08:31] LABS: CALCIUM 8.2 mg/dL (8.5-10.1)
[2022-05-12 08:32] LABS: ALBUMIN 2.2 g/dl (3.4-5.0); BLOOD UREA NITROGEN 35.6 mg/dL (7-18); MAGNESIUM 1.7 mg/dL (1.8-2.4)
[2022-05-12 08:34] LABS: CREATININE 4.1 mg/dL (0.55-1.3)
[2022-05-12 08:35] LABS: PHOSPHOROUS 3.8 mg/dL (2.5-4.9)
[2022-05-12 08:36] LABS: BILIRUBIN,TOTAL 1.1 mg/dL (0.2-1); TOT PROT 6.2 g/dl (6.4-8.2)
[2022-05-12] MEDS: POTASSIUM CHLORIDE TABS 20 MEQ TABLET.ER (FP) PO SCH (09:38)
[2022-05-12] MEDS: CALCITRIOL 0.25 MCG CAPSULE (FP) PO SCH ×2 (09:38→22:03)
[2022-05-12] MEDS: DOCUSATE SODIUM 100 MG CAPSULE (FP) PO SCH (09:38)
[2022-05-12] MEDS: FUROSEMIDE 40 MG TABLET (FP) PO SCH (09:38)
[2022-05-12] MEDS: VITAMIN B COMP W-C 1 EA TABLET (NEPHRO-VITE) PO SCH (09:38)
[2022-05-12] MEDS: BACITRACIN ZINC 15 GM TUBE TOPICAL OINTMENT TP SCH ×2 (09:39→22:18)
[2022-05-12] MEDS: POLYETHYLENE GLYCOL (HEALTHYLAX) 3350 17 GM PACKET PO SCH ×2 (09:39→22:18)
[2022-05-12] MEDS: LACTOBACILLUS ACIDOPHILUS 1 TABLET PO SCH (09:39)
[2022-05-12] MEDS: CALCIUM CARBONATE 650 MG TABLET PO SCH ×2 (09:40→22:03)
[2022-05-12] MEDS: PANTOPRAZOLE 40 MG TABLET PO SCH (11:07)
[2022-05-12] MEDS: GABAPENTIN 300 MG CAPSULE PO SCH ×2 (15:29→22:03)
[2022-05-12] MEDS ORDERED: MAGNESIUM SULF 50% (8.12 MEQ/2 ML-1 GM VIAL) IVPB ONE (15:36)
[2022-05-12] MEDS: amLODIPine BESYLATE 5 MG TABLET (FP) PO SCH (16:48)
[2022-05-12] MEDS: LATANOPROST 0.005% OPHTH SOLN 2.5ML BOTTLE OU SCH (22:18)
[2022-05-13] MEDS: GABAPENTIN 300 MG CAPSULE PO SCH ×3 (06:27→21:24)
[2022-05-13] MEDS: ALBUTEROL SO4 2.5/IPRATROPIUM 0.5 INH SOL 3 ML VIAL.NEB. NEB SCH ×3 (08:16→17:05)
[2022-05-13] MEDS: TAMSULOSIN HCL 0.4 MG CAP PO SCH (09:38)
[2022-05-13] MEDS: LACTOBACILLUS ACIDOPHILUS 1 TABLET PO SCH (09:38)
[2022-05-13] MEDS: CALCITRIOL 0.25 MCG CAPSULE (FP) PO SCH ×2 (09:38→21:42)
[2022-05-13] MEDS: FUROSEMIDE 40 MG TABLET (FP) PO SCH (09:38)
[2022-05-13] MEDS: VITAMIN B COMP W-C 1 EA TABLET (NEPHRO-VITE) PO SCH (09:39)
[2022-05-13] MEDS: PANTOPRAZOLE 40 MG TABLET PO SCH (09:39)
[2022-05-13] MEDS: AMINO ACIDS/PROTEIN HYDROLYS 30 ML LIQUID.PKT PO SCH ×3 (09:39→17:05)
[2022-05-13] MEDS: POTASSIUM CHLORIDE TABS 20 MEQ TABLET.ER (FP) PO SCH (09:39)
[2022-05-13] MEDS: BACITRACIN ZINC 15 GM TUBE TOPICAL OINTMENT TP SCH ×3 (09:40→21:42)
[2022-05-13] MEDS: POLYETHYLENE GLYCOL (HEALTHYLAX) 3350 17 GM PACKET PO SCH ×3 (09:40→21:32)
[2022-05-13] MEDS: CALCIUM CARBONATE 650 MG TABLET PO SCH ×2 (09:40→21:42)
[2022-05-13] MEDS: DOCUSATE SODIUM 100 MG CAPSULE (FP) PO SCH (09:40)
[2022-05-13 10:46] LABS: BASO % 0.8 % (0-2.0); EOS % 2.5 % (0-4.5); HEMATOCRIT 28.4 % (35.4-49); HEMOGLOBIN 9.4 GM/dL (11.7-16.9); LYMPH % 14.9 % (8-40); MCH 30.6 pg (25.7-33.7); MCHC 33.1 g/dl (32.0-35.9); MEAN CELL VOLUME 92.5 fl (80-96); MEAN PLT VOLUME 6.9 fl (7.5-11.1); MONO % 5.8 % (3.8-10.2); PLATELET COUNT 361 10^3/uL (134-434); RBC 3.06 M/mm3 (4.00-5.60); RDW 16.6 % (11.9-15.9)
[2022-05-13] MEDS ORDERED: SODIUM CHLORIDE 250 ML IV PRN (10:59)
[2022-05-13] MEDS ORDERED: EPOETIN ALFA-EPBX 10,000 UNIT/ML VIAL SQ ONE (11:00)
[2022-05-13 11:09] LABS: CHLORIDE 102 mmol/L (98-107); SODIUM 137 mmol/L (136-145)
[2022-05-13 11:11] LABS: CALCIUM 8.2 mg/dL (8.5-10.1)
[2022-05-13 11:12] LABS: ALBUMIN 2.3 g/dl (3.4-5.0); ANION GAP 7 MMOL/L (8-16); BLOOD UREA NITROGEN 42.3 mg/dL (7-18); CO2 27 mmol/L (21-32); GLUCOSE,RANDOM 132 mg/dL (74-106); MAGNESIUM 1.7 mg/dL (1.8-2.4)
[2022-05-13 11:15] LABS: CREATININE 4.3 mg/dL (0.55-1.3); PHOSPHOROUS 4.1 mg/dL (2.5-4.9); SGOT/AST 16 U/L (15-37); SGPT/ALT < 6 U/L (13-61)
[2022-05-13 11:17] LABS: TOT PROT 6.3 g/dl (6.4-8.2)
[2022-05-13 11:18] LABS: ALK PHOS 78 U/L (45-117)
[2022-05-13] MEDS: amLODIPine BESYLATE 5 MG TABLET (FP) PO SCH (13:41)
[2022-05-13] MEDS ORDERED: CEFAZOLIN SODIUM 2 GM in DEXTROSE 5%-WATER 100 ML IVPB ONE (14:52)
[2022-05-13] MEDS ORDERED: MAGNESIUM OXIDE 400 MG TABLET (FP) PO ONE (17:26)
[2022-05-13] MEDS ORDERED: ACETAMINOPHEN 325 MG TABLET (FP) PO PRN (20:07)
[2022-05-13] MEDS: LATANOPROST 0.005% OPHTH SOLN 2.5ML BOTTLE OU SCH ×2 (21:25→21:31)
[2022-05-13] MEDS ORDERED: INSULIN (NOVOLOG) ASPART 100 UNITS/ML 10ML VIAL ONE (22:35)
[2022-05-14] MEDS: GABAPENTIN 300 MG CAPSULE PO SCH ×2 (05:07→13:41)
[2022-05-14] MEDS: ALBUTEROL SO4 2.5/IPRATROPIUM 0.5 INH SOL 3 ML VIAL.NEB. NEB SCH ×3 (07:21→16:08)
[2022-05-14] MEDS ORDERED: TAMSULOSIN HCL 0.4 MG CAP PO SCH (08:30)
[2022-05-14] MEDS: AMINO ACIDS/PROTEIN HYDROLYS 30 ML LIQUID.PKT PO SCH ×3 (09:00→17:30)
[2022-05-14 09:28] VITALS: RESP 18
[2022-05-14] MEDS ORDERED: FUROSEMIDE 40 MG TABLET (FP) PO SCH (10:00)
[2022-05-14] MEDS ORDERED: VITAMIN B COMP W-C 1 EA TABLET (NEPHRO-VITE) PO SCH (10:00)
[2022-05-14] MEDS ORDERED: POTASSIUM CHLORIDE TABS 20 MEQ TABLET.ER (FP) PO SCH (10:00)
[2022-05-14] MEDS ORDERED: DOCUSATE SODIUM 100 MG CAPSULE (FP) PO SCH (10:00)
[2022-05-14] MEDS ORDERED: LACTOBACILLUS ACIDOPHILUS 1 TABLET PO SCH (10:00)
[2022-05-14] MEDS: BACITRACIN ZINC 15 GM TUBE TOPICAL OINTMENT TP SCH (10:27)
[2022-05-14] MEDS: PANTOPRAZOLE 40 MG TABLET PO SCH (10:27)
[2022-05-14] MEDS: amLODIPine BESYLATE 5 MG TABLET (FP) PO SCH (10:27)
[2022-05-14] MEDS: CALCIUM CARBONATE 650 MG TABLET PO SCH (10:28)
[2022-05-14] MEDS: CALCITRIOL 0.25 MCG CAPSULE (FP) PO SCH (10:28)
[2022-05-14] MEDS: POLYETHYLENE GLYCOL (HEALTHYLAX) 3350 17 GM PACKET PO SCH (10:35)
[2022-05-14] MEDS ORDERED: LOSARTAN POTASSIUM 25 MG TABLET PO SCH (12:30)
[2022-05-14] MEDS ORDERED: COLLAGENASE CLOSTRIDIUM HIST. 30 GRAMS TUBE TP SCH (12:30)
[2022-05-14 15:07] VITALS: BP 147/64; TEMP 98.3
[2022-05-14 16:10] VITALS: PULSE 83
== END 2022-05-14 18:10 | DRG 721 ==
LOC: JER 14:35 → JERBED 19:55 → J4W 04-27 02:22 → J6S 05-13 14:27
PROVIDERS: ADMIT Internal Medicine; ATTEND Internal Medicine
PROC: 05PYX3Z Removal of Infusion Device from Upper Vein, External Approach (ICD-10-PCS; 2022-04-28)
PROC: B544ZZA Ultrasonography of Left Jugular Veins, Guidance (ICD-10-PCS; 2022-05-02)
PROC: 30233N1 Transfusion of Nonautologous Red Blood Cells into Peripheral Vein, Percutaneous Approach (ICD-10-PCS; 2022-05-02)
PROC: 5A1D70Z Performance of Urinary Filtration, Intermittent, Less than 6 Hours Per Day (ICD-10-PCS; 2022-05-02)
PROC: 5A1D70Z Performance of Urinary Filtration, Intermittent, Less than 6 Hours Per Day (ICD-10-PCS; 2022-05-02)
PROC: 5A1D70Z Performance of Urinary Filtration, Intermittent, Less than 6 Hours Per Day (ICD-10-PCS; 2022-05-02)
PROC: 5A1D70Z Performance of Urinary Filtration, Intermittent, Less than 6 Hours Per Day (ICD-10-PCS; 2022-05-02)
PROC: 5A1D70Z Performance of Urinary Filtration, Intermittent, Less than 6 Hours Per Day (ICD-10-PCS; 2022-05-02)
PROC: 5A1D70Z Performance of Urinary Filtration, Intermittent, Less than 6 Hours Per Day (ICD-10-PCS; 2022-05-02)
PROC: 05HN33Z Insertion of Infusion Device into Left Internal Jugular Vein, Percutaneous Approach (ICD-10-PCS; principal; 2022-05-02 15:00)
DX: T80.211A Bloodstream infection due to central venous catheter, initial encounter (principal); A41.01 Sepsis due to Methicillin susceptible Staphylococcus aureus; N18.6 End stage renal disease; G93.41 Metabolic encephalopathy; E11.22 Type 2 diabetes mellitus with diabetic chronic kidney disease; M48.00 Spinal stenosis, site unspecified; I33.0 Acute and subacute infective endocarditis; J96.22 Acute and chronic respiratory failure with hypercapnia; I13.2 Hypertensive heart and chronic kidney disease with heart failure and with stage 5 chronic kidney disease, or end stage renal disease; I50.9 Heart failure, unspecified; H40.9 Unspecified glaucoma; E87.29 Other acidosis; E66.01 Morbid (severe) obesity due to excess calories; Z68.42 Body mass index [BMI] 45.0-49.9, adult; R53.2 Functional quadriplegia; G61.0 Guillain-Barre syndrome; I95.9 Hypotension, unspecified; A52.16 Charcot's arthropathy (tabetic); N40.0 Benign prostatic hyperplasia without lower urinary tract symptoms; E87.4 Mixed disorder of acid-base balance; J96.21 Acute and chronic respiratory failure with hypoxia; J44.9 Chronic obstructive pulmonary disease, unspecified; I47.20 Ventricular tachycardia, unspecified; D62 Acute posthemorrhagic anemia; E11.42 Type 2 diabetes mellitus with diabetic polyneuropathy; B95.61 Methicillin susceptible Staphylococcus aureus infection as the cause of diseases classified elsewhere; K92.2 Gastrointestinal hemorrhage, unspecified; R41.82 Altered mental status, unspecified; G47.33 Obstructive sleep apnea (adult) (pediatric); E78.5 Hyperlipidemia, unspecified; R25.1 Tremor, unspecified; L89.620 Pressure ulcer of left heel, unstageable; E83.51 Hypocalcemia; E11.39 Type 2 diabetes mellitus with other diabetic ophthalmic complication; B95.2 Enterococcus as the cause of diseases classified elsewhere; Y83.8 Other surgical procedures as the cause of abnormal reaction of the patient, or of later complication, without mention of misadventure at the time of the procedure; Z99.2 Dependence on renal dialysis; Z95.0 Presence of cardiac pacemaker; Z74.01 Bed confinement status
CPT/HCPCS: 0241U-QW; 36415; 36430; 36600; 70450-TC; 71045-TC-FY; 73630-TC-LT; 76000-TC-FY; 80048; 80053; 81003; 82272; 82803; 82962; 83036; 83605; 83735; 84100; 84484; 85025; 85027; 85610; 85730; 86803; 86850; 86900; 86901; 86922; 87040; 87070; 87086; 87186; 87205; 87340; 93005; 93010; 93306-TC; 94640; 94660; 94760; 97162-GP; 99285-25; C1750; C9803-CS; G0480; J0885; J1644; J3370; P9058; Q5106; U0003; U0005

== ENCOUNTER 2022-07-29 07:43 | Inpatient (IN) | payer OTHER ==
[2022-07-29 08:49] LABS: VENOUS BASE EXCESS -15.9 mmol/L (-2-2); VENOUS O2 SATURATION 87.5 % (70-80)
[2022-07-29 08:53] LABS: VENOUS PCO2 74.5 mmHg (38-52); VENOUS PH 6.965 (7.310-7.410)
[2022-07-29 08:59] LABS: BASO % 0.5 % (0-2.0); EOS % 1.5 % (0-4.5); HEMATOCRIT 34.5 % (35.4-49); HEMOGLOBIN 11.4 GM/dL (11.7-16.9); LYMPH % 13.7 % (8-40); MCHC 32.9 g/dl (32.0-35.9); MEAN CELL VOLUME 97.2 fl (80-96); MEAN PLT VOLUME 8.3 fl (7.5-11.1); MONO % 6.9 % (3.8-10.2); NEUT % 77.4 % (42.8-82.8); PLATELET COUNT 234 10^3/uL (134-434); RBC 3.55 M/mm3 (4.00-5.60); RDW 16.1 % (11.9-15.9); WHITE BLOOD COUNT 8.6 K/mm3 (4.0-10.0)
[2022-07-29] MEDS ORDERED: VANCOMYCIN 1 GM in D5W (PRE-DOCKED) 1,000 MG/250 ML (RESTRICTED TO ID ONLY IVPB ONE (08:59)
[2022-07-29] MEDS ORDERED: PIPERACILLIN/TAZOB 4.5 GM 4.5 GM in DEXTROSE 5%-WATER 100 ML IVPB ONE (09:00)
[2022-07-29 09:05] LABS: INR 1.01 (0.83-1.09); PROTHROMBIN TIME (PATIENT) 11.7 SEC (9.7-13.0)
[2022-07-29 09:07] LABS: ACTIVATED PTT 33.7 SECONDS (25.2-36.5)
[2022-07-29] MEDS ORDERED: PIPERACILLIN/TAZOB 4.5 GM 4.5 GM/100 ML BAG IVPB ONE (09:08)
[2022-07-29] MEDS ORDERED: VANCOMYCIN/WATER FOR INJ (PEG) 1,000 MG/200 ML BAG IVPB ONE (09:09)
[2022-07-29 09:11] LABS: CHLORIDE 108 mmol/L (98-107); POTASSIUM 4.8 mmol/L (3.5-5.1); SODIUM 136 mmol/L (136-145)
[2022-07-29 09:13] LABS: ANION GAP 10 MMOL/L (8-16); BLOOD UREA NITROGEN 54.7 mg/dL (7-18); CALCIUM 7.8 mg/dL (8.5-10.1); CO2 18 mmol/L (21-32)
[2022-07-29 09:14] LABS: ALBUMIN 3.6 g/dl (3.4-5.0); GLUCOSE,RANDOM 124 mg/dL (74-106)
[2022-07-29 09:16] LABS: SGPT/ALT 15 U/L (13-61)
[2022-07-29 09:17] LABS: SGOT/AST 14 U/L (15-37)
[2022-07-29 09:18] LABS: BILIRUBIN,TOTAL 0.4 mg/dL (0.2-1); TOT PROT 7.5 g/dl (6.4-8.2)
[2022-07-29 09:19] LABS: ALK PHOS 143 U/L (45-117)
[2022-07-29 09:24] LABS: CREATININE 8.6 mg/dL (0.55-1.3)
[2022-07-29] MEDS ORDERED: ASPIRIN 325 MG TABLET PO ONE (09:27)
[2022-07-29] MEDS ORDERED: ASPIRIN 81 MG CHEWABLE TABLETS PO ONE (09:32)
[2022-07-29] MEDS ORDERED: ASPIRIN 81 MG CHEWABLE TABLETS ONE (09:33)
[2022-07-29] MEDS ORDERED: ALBUTEROL SO4 2.5/IPRATROPIUM 0.5 INH SOL 3 ML VIAL.NEB. NEB ONE ×2 (09:54→09:58)
[2022-07-29] MEDS ORDERED: methylPREDNISolone NA SUCC 125 MG/2 ML VIAL IVPB ONE (09:54)
[2022-07-29] MEDS ORDERED: methylPREDNISolone NA SUCC 125 MG/2 ML VIAL ONE (09:58)
[2022-07-29] MEDS ORDERED: LACTATED RINGERS SOLUTION 1000 ML INFUS.BAG IV ONE ×2 (10:09→11:48)
[2022-07-29 10:53] LABS: ARTERIAL BLOOD GAS BASE EXCESS -18.9 mmol/L (-2-2); ARTERIAL BLOOD GAS PO2 234.8 mmHg (80-100)
[2022-07-29 11:01] LABS: ARTERIAL BLOOD GAS pH 6.976 (7.350-7.450)
[2022-07-29] MEDS ORDERED: RAPID SEQUENCE INTUBATION KIT NR ONE (13:52)
[2022-07-29] MEDS ORDERED: SODIUM CHLORIDE 250 ML IV PRN (13:55)
[2022-07-29] MEDS: MUPIROCIN 2% TOPICAL OINTMENT FOR DECOLONIZATION NS SCH (14:00)
[2022-07-29] MEDS ORDERED: MIDAZOLAM HCL 5 MG/1 ML Single Dose Vial ONE (14:05)
[2022-07-29] MEDS ORDERED: MIDAZOLAM HCL 2 MG/2 ML SINGLE DOSE VIAL ONE ×2 (14:40→15:04)
[2022-07-29] MEDS ORDERED: PROPOFOL 200 MG/20 ML VIAL IVPUSH ONE ×2 (15:22→18:11)
[2022-07-29] MEDS ORDERED: MIDAZOLAM HCL 5 MG/1 ML Single Dose Vial IVPUSH ONE (15:22)
[2022-07-29] MEDS ORDERED: MIDAZOLAM HCL 2 MG/2 ML SINGLE DOSE VIAL IVPUSH ONE ×3 (15:23→15:24)
[2022-07-29] MEDS: ALBUTEROL SO4 2.5/IPRATROPIUM 0.5 INH SOL 3 ML VIAL.NEB. NEB SCH ×2 (15:54→20:04)
[2022-07-29] MEDS: DEXMEDETOMIDINE PREMIX 400 MCG/100 ML BAG IVPB SCH ×3 (16:05→22:00)
[2022-07-29 17:27] LABS: BLOOD UREA NITROGEN 59.8 mg/dL (7-18)
[2022-07-29 18:22] LABS: HIV INTERPRETATION NEGATIVE (NEGATIVE)
[2022-07-29 18:42] LABS: ARTERIAL BLD GAS O2 SATURATION 99.4 % (95-98); ARTERIAL BLOOD GAS PO2 244.9 mmHg (80-100); ARTERIAL BLOOD GAS pH 7.267 (7.350-7.450)
[2022-07-29] MEDS: PIPERACILLIN/TAZOB 2.25 GM 2.25 GM in DEXTROSE 5%-WATER - 50 ML IVPB SCH (21:00)
[2022-07-29] MEDS: LABETALOL HCL 20 MG/4 ML VIAL IVPUSH PRN (21:05)
[2022-07-29] MEDS ORDERED: hydrALAZINE HCL 20 MG/ML VIAL IVPUSH ONE (21:38)
[2022-07-29] MEDS ORDERED: CHLORHEXIDINE GLUCONATE 4% CLEANSER FOR DECOLONIZATION TP SCH (22:00)
[2022-07-30] MEDS: MUPIROCIN 2% TOPICAL OINTMENT FOR DECOLONIZATION NS SCH ×3 (00:05→10:02)
[2022-07-30] MEDS: LABETALOL HCL 20 MG/4 ML VIAL IVPUSH PRN ×2 (01:00→04:00)
[2022-07-30] MEDS: DEXMEDETOMIDINE PREMIX 400 MCG/100 ML BAG IVPB SCH ×2 (01:00→04:30)
[2022-07-30] MEDS: PIPERACILLIN/TAZOB 2.25 GM 2.25 GM in DEXTROSE 5%-WATER - 50 ML IVPB SCH ×3 (01:24→11:13)
[2022-07-30] MEDS ORDERED: NICARDIPINE 25 MG in DEXTROSE 5%-WATER - 240 ML IVPB SCH (04:30)
[2022-07-30 06:36] LABS: ARTERIAL BLD GAS O2 SATURATION 95.8 % (95-98); ARTERIAL BLOOD GAS BASE EXCESS -5.1 mmol/L (-2-2); ARTERIAL BLOOD GAS PO2 77.9 mmHg (80-100); ARTERIAL BLOOD GAS pH 7.407 (7.350-7.450)
[2022-07-30 06:38] LABS: ALLENS TEST POSITIVE
[2022-07-30 06:39] LABS: VENT RATE 25
[2022-07-30 06:58] LABS: HEMATOCRIT 35.4 % (35.4-49); HEMOGLOBIN 11.7 GM/dL (11.7-16.9); MCH 30.8 pg (25.7-33.7); MCHC 33.1 g/dl (32.0-35.9); MEAN PLT VOLUME 8.9 fl (7.5-11.1); PLATELET COUNT 220 10^3/uL (134-434); RBC 3.81 M/mm3 (4.00-5.60); RDW 15.5 % (11.9-15.9); WHITE BLOOD COUNT 10.1 K/mm3 (4.0-10.0)
[2022-07-30 07:19] LABS: POTASSIUM 3.5 mmol/L (3.5-5.1)
[2022-07-30 07:21] LABS: CALCIUM 8.1 mg/dL (8.5-10.1)
[2022-07-30 07:22] LABS: BLOOD UREA NITROGEN 43.7 mg/dL (7-18); MAGNESIUM 1.7 mg/dL (1.8-2.4)
[2022-07-30 07:24] LABS: CREATININE 6.2 mg/dL (0.55-1.3)
[2022-07-30 07:25] LABS: PHOSPHOROUS 5.6 mg/dL (2.5-4.9)
[2022-07-30 07:26] LABS: BILIRUBIN,TOTAL 0.5 mg/dL (0.2-1); TOT PROT 6.6 g/dl (6.4-8.2)
[2022-07-30] MEDS ORDERED: MAGNESIUM SULF 50% (8.12 MEQ/2 ML-1 GM VIAL) IVPB ONE (07:50)
[2022-07-30] MEDS ORDERED: VANCOMYCIN HCL 1,500 MG in DEXTROSE 5%-WATER - 500 ML IVPB SCH (08:00)
[2022-07-30] MEDS: ALBUTEROL SO4 2.5/IPRATROPIUM 0.5 INH SOL 3 ML VIAL.NEB. NEB SCH ×4 (08:05→21:02)
[2022-07-30] MEDS ORDERED: LOSARTAN POTASSIUM 25 MG TABLET PO SCH ×2 (08:14→10:00)
[2022-07-30] MEDS ORDERED: amLODIPine BESYLATE 5 MG TABLET (FP) PO SCH ×2 (08:14→10:00)
[2022-07-30] MEDS ORDERED: VANCOMYCIN PREMIX 1.5 GM 1,500 MG/300 ML BAG IVPB SCH ×2 (09:00)
[2022-07-30] MEDS: HEPARIN NA (PORCINE) 5,000 UNITS/ML 1ML VIAL SQ SCH ×3 (09:38→22:48)
[2022-07-30] MEDS ORDERED: CELECOXIB 200 MG CAPSULE PO SCH (10:00)
[2022-07-30] MEDS ORDERED: COLCHICINE 0.6 MG CAPSULE PO SCH (10:00)
[2022-07-30] MEDS ORDERED: CALCITRIOL 0.25 MCG CAPSULE (FP) PO SCH (10:00)
[2022-07-30] MEDS ORDERED: PATIENT'S OWN MEDICATION (NON-FORMULARY) (Ipratropium/Albuterol Sulfate 1 PUFF Inhaler) IH SCH (10:00)
[2022-07-30] MEDS ORDERED: PANTOPRAZOLE SODIUM 40 MG VIAL IVPUSH SCH (10:00)
[2022-07-30] MEDS ORDERED: FAMOTIDINE 20 MG TABLET PO SCH (10:00)
[2022-07-30] MEDS ORDERED: CLOPIDOGREL BISULFATE 75 MG TABLET (FP) PO SCH (10:00)
[2022-07-30] MEDS: COLCHICINE 0.6 MG TAB PO SCH ×2 (11:21→22:47)
[2022-07-30] MEDS: GABAPENTIN 300 MG CAPSULE PO SCH ×2 (13:38→22:47)
[2022-07-30] MEDS: SEVELAMER CARBONATE 800 MG TAB (FP) PO SCH ×3 (13:38→22:55)
[2022-07-30] MEDS ORDERED: SODIUM CHLORIDE 250 ML IV PRN (20:46)
[2022-07-30] MEDS ORDERED: LATANOPROST 0.005% OPHTH SOLN 2.5ML BOTTLE OS SCH (22:00)
[2022-07-30] MEDS ORDERED: TAMSULOSIN HCL 0.4 MG CAP PO SCH (22:00)
[2022-07-31] MEDS: SEVELAMER CARBONATE 800 MG TAB (FP) PO SCH ×3 (06:07→22:26)
[2022-07-31] MEDS: GABAPENTIN 300 MG CAPSULE PO SCH ×3 (06:07→22:24)
[2022-07-31] MEDS: HEPARIN NA (PORCINE) 5,000 UNITS/ML 1ML VIAL SQ SCH ×3 (06:08→22:24)
[2022-07-31] MEDS: ALBUTEROL SO4 2.5/IPRATROPIUM 0.5 INH SOL 3 ML VIAL.NEB. NEB SCH ×4 (08:14→20:51)
[2022-07-31 08:55] LABS: HEMATOCRIT 28.5 % (35.4-49); HEMOGLOBIN 9.7 GM/dL (11.7-16.9); MCH 31.8 pg (25.7-33.7); MCHC 34.2 g/dl (32.0-35.9); MEAN PLT VOLUME 8.7 fl (7.5-11.1); PLATELET COUNT 198 10^3/uL (134-434); RBC 3.06 M/mm3 (4.00-5.60); RDW 15.9 % (11.9-15.9)
[2022-07-31] MEDS: TAMSULOSIN HCL 0.4 MG CAP PO SCH (09:09)
[2022-07-31 09:17] LABS: CHLORIDE 107 mmol/L (98-107); POTASSIUM 3.6 mmol/L (3.5-5.1); SODIUM 139 mmol/L (136-145)
[2022-07-31 09:22] LABS: ALBUMIN 2.9 g/dl (3.4-5.0); ANION GAP 12 MMOL/L (8-16); BLOOD UREA NITROGEN 58.9 mg/dL (7-18); CALCIUM 7.1 mg/dL (8.5-10.1); CO2 20 mmol/L (21-32); GLUCOSE,RANDOM 141 mg/dL (74-106)
[2022-07-31 09:24] LABS: SGPT/ALT 15 U/L (13-61)
[2022-07-31 09:25] LABS: PHOSPHOROUS 6.8 mg/dL (2.5-4.9); SGOT/AST 14 U/L (15-37)
[2022-07-31 09:26] LABS: BILIRUBIN,TOTAL 0.4 mg/dL (0.2-1)
[2022-07-31 09:27] LABS: ALK PHOS 83 U/L (45-117)
[2022-07-31 09:33] LABS: CREATININE 7.7 mg/dL (0.55-1.3)
[2022-07-31] MEDS ORDERED: LOSARTAN POTASSIUM 25 MG TABLET PO SCH (10:00)
[2022-07-31] MEDS ORDERED: COLCHICINE 0.6 MG TAB PO SCH (10:00)
[2022-07-31] MEDS ORDERED: amLODIPine BESYLATE 5 MG TABLET (FP) PO SCH (10:00)
[2022-07-31] MEDS: PANTOPRAZOLE 40 MG TABLET PO SCH (15:08)
[2022-07-31] MEDS: CALCITRIOL 0.25 MCG CAPSULE (FP) PO SCH (15:08)
[2022-07-31] MEDS: CLOPIDOGREL BISULFATE 75 MG TABLET (FP) PO SCH (15:08)
[2022-07-31] MEDS: VITAMIN B COMP W-C 1 EA TABLET (NEPHRO-VITE) PO SCH (17:57)
[2022-07-31] MEDS: ZINC SULFATE 220 MG CAPSULE (FP) PO SCH (17:57)
[2022-07-31] MEDS ORDERED: HEPARIN NA (PORCINE) 5,000 UNITS/ML 1ML VIAL IVPUSH ONE (20:46)
[2022-07-31] MEDS ORDERED: CHLORHEXIDINE GLUCONATE 4% CLEANSER FOR DECOLONIZATION TP SCH (22:00)
[2022-07-31] MEDS: LATANOPROST 0.005% OPHTH SOLN 2.5ML BOTTLE OS SCH (22:26)
[2022-08-01] MEDS: SEVELAMER CARBONATE 800 MG TAB (FP) PO SCH ×4 (06:37→21:49)
[2022-08-01] MEDS: GABAPENTIN 300 MG CAPSULE PO SCH ×3 (06:38→21:42)
[2022-08-01] MEDS: HEPARIN NA (PORCINE) 5,000 UNITS/ML 1ML VIAL SQ SCH ×3 (06:38→21:42)
[2022-08-01] MEDS: ALBUTEROL SO4 2.5/IPRATROPIUM 0.5 INH SOL 3 ML VIAL.NEB. NEB SCH ×4 (07:40→19:32)
[2022-08-01] MEDS: ZINC SULFATE 220 MG CAPSULE (FP) PO SCH (09:28)
[2022-08-01] MEDS: TAMSULOSIN HCL 0.4 MG CAP PO SCH (09:28)
[2022-08-01] MEDS: VITAMIN B COMP W-C 1 EA TABLET (NEPHRO-VITE) PO SCH (09:28)
[2022-08-01] MEDS: PANTOPRAZOLE 40 MG TABLET PO SCH (09:29)
[2022-08-01] MEDS: CLOPIDOGREL BISULFATE 75 MG TABLET (FP) PO SCH (09:29)
[2022-08-01 09:47] LABS: HEMATOCRIT 29.5 % (35.4-49); HEMOGLOBIN 9.7 GM/dL (11.7-16.9); MCH 30.8 pg (25.7-33.7); MEAN CELL VOLUME 93.5 fl (80-96); MEAN PLT VOLUME 8.3 fl (7.5-11.1); PLATELET COUNT 197 10^3/uL (134-434); RBC 3.16 M/mm3 (4.00-5.60); RDW 15.9 % (11.9-15.9); WHITE BLOOD COUNT 6.9 K/mm3 (4.0-10.0)
[2022-08-01] MEDS: CALCITRIOL 0.25 MCG CAPSULE (FP) PO SCH (09:54)
[2022-08-01 10:10] LABS: POTASSIUM 3.9 mmol/L (3.5-5.1)
[2022-08-01 10:18] LABS: CALCIUM 7.4 mg/dL (8.5-10.1)
[2022-08-01 10:19] LABS: BLOOD UREA NITROGEN 37.3 mg/dL (7-18); MAGNESIUM 1.9 mg/dL (1.8-2.4)
[2022-08-01 10:22] LABS: CREATININE 5.8 mg/dL (0.55-1.3); PHOSPHOROUS 5.4 mg/dL (2.5-4.9)
[2022-08-01] MEDS: COLLAGENASE CLOSTRIDIUM HIST. 30 GRAMS TUBE TP SCH (13:11)
[2022-08-01] MEDS ORDERED: EPOETIN ALFA-EPBX 10,000 UNIT/ML VIAL SQ ONE (20:15)
[2022-08-01] MEDS: LATANOPROST 0.005% OPHTH SOLN 2.5ML BOTTLE OS SCH (21:42)
[2022-08-01 21:49] VITALS: BMI 47.5
[2022-08-02] MEDS: HEPARIN NA (PORCINE) 5,000 UNITS/ML 1ML VIAL SQ SCH ×3 (06:24→22:27)
[2022-08-02] MEDS: GABAPENTIN 300 MG CAPSULE PO SCH ×3 (06:25→22:27)
[2022-08-02] MEDS: SEVELAMER CARBONATE 800 MG TAB (FP) PO SCH ×4 (06:25→18:07)
[2022-08-02] MEDS: ALBUTEROL SO4 2.5/IPRATROPIUM 0.5 INH SOL 3 ML VIAL.NEB. NEB SCH ×4 (08:05→21:00)
[2022-08-02] MEDS: TAMSULOSIN HCL 0.4 MG CAP PO SCH (08:30)
[2022-08-02 10:01] VITALS: RESP 18
[2022-08-02] MEDS ORDERED: SODIUM CHLORIDE 250 ML IV PRN (10:15)
[2022-08-02] MEDS ORDERED: EPOETIN ALFA-EPBX 10,000 UNIT/ML VIAL SQ ONE (10:30)
[2022-08-02] MEDS: CLOPIDOGREL BISULFATE 75 MG TABLET (FP) PO SCH (16:05)
[2022-08-02] MEDS: CALCITRIOL 0.25 MCG CAPSULE (FP) PO SCH (17:33)
[2022-08-02] MEDS: PANTOPRAZOLE 40 MG TABLET PO SCH (17:33)
[2022-08-02] MEDS: VITAMIN B COMP W-C 1 EA TABLET (NEPHRO-VITE) PO SCH (17:33)
[2022-08-02] MEDS: ZINC SULFATE 220 MG CAPSULE (FP) PO SCH (17:33)
[2022-08-02] MEDS: COLLAGENASE CLOSTRIDIUM HIST. 30 GRAMS TUBE TP SCH (18:01)
[2022-08-02] MEDS: LATANOPROST 0.005% OPHTH SOLN 2.5ML BOTTLE OS SCH (22:28)
[2022-08-03 05:10] VITALS: BP 145/86; PULSE 85; TEMP 97.7
[2022-08-03] MEDS: GABAPENTIN 300 MG CAPSULE PO SCH ×2 (07:05→15:25)
[2022-08-03] MEDS: HEPARIN NA (PORCINE) 5,000 UNITS/ML 1ML VIAL SQ SCH ×2 (07:05→15:25)
[2022-08-03] MEDS: ALBUTEROL SO4 2.5/IPRATROPIUM 0.5 INH SOL 3 ML VIAL.NEB. NEB SCH ×2 (07:25→11:20)
[2022-08-03] MEDS: TAMSULOSIN HCL 0.4 MG CAP PO SCH (08:20)
[2022-08-03] MEDS: SEVELAMER CARBONATE 800 MG TAB (FP) PO SCH ×2 (08:20→11:19)
[2022-08-03] MEDS: CLOPIDOGREL BISULFATE 75 MG TABLET (FP) PO SCH (09:52)
[2022-08-03] MEDS: PANTOPRAZOLE 40 MG TABLET PO SCH (09:52)
[2022-08-03] MEDS: ZINC SULFATE 220 MG CAPSULE (FP) PO SCH (09:52)
[2022-08-03] MEDS: COLLAGENASE CLOSTRIDIUM HIST. 30 GRAMS TUBE TP SCH (09:53)
[2022-08-03] MEDS: CALCITRIOL 0.25 MCG CAPSULE (FP) PO SCH (09:53)
[2022-08-03] MEDS: VITAMIN B COMP W-C 1 EA TABLET (NEPHRO-VITE) PO SCH (09:53)
[2022-08-03] MEDS ORDERED: POLYETHYLENE GLYCOL (HEALTHYLAX) 3350 17 GM PACKET PO SCH (11:15)
== END 2022-08-03 14:27 | disposition home or self-care (01) | DRG 133 ==
LOC: JER 07:43 → JERBED 10:48 → JICU 12:21 → J6S 07-30 22:23
PROVIDERS: ADMIT Internal Medicine Pulmonary Disease; ATTEND Internal Medicine
PROC: 05HM33Z Insertion of Infusion Device into Right Internal Jugular Vein, Percutaneous Approach (ICD-10-PCS; principal; 2022-07-29)
PROC: B543ZZA Ultrasonography of Right Jugular Veins, Guidance (ICD-10-PCS; 2022-07-29)
PROC: 0BH17EZ Insertion of Endotracheal Airway into Trachea, Via Natural or Artificial Opening (ICD-10-PCS; 2022-07-29)
PROC: 5A1935Z Respiratory Ventilation, Less than 24 Consecutive Hours (ICD-10-PCS; 2022-07-29)
PROC: 5A1D70Z Performance of Urinary Filtration, Intermittent, Less than 6 Hours Per Day (ICD-10-PCS; 2022-07-29)
PROC: 5A1D70Z Performance of Urinary Filtration, Intermittent, Less than 6 Hours Per Day (ICD-10-PCS; 2022-07-31)
PROC: 5A1D70Z Performance of Urinary Filtration, Intermittent, Less than 6 Hours Per Day (ICD-10-PCS; 2022-08-02)
DX: J96.02 Acute respiratory failure with hypercapnia (principal); G93.41 Metabolic encephalopathy; E78.5 Hyperlipidemia, unspecified; L89.623 Pressure ulcer of left heel, stage 3; E66.01 Morbid (severe) obesity due to excess calories; N40.0 Benign prostatic hyperplasia without lower urinary tract symptoms; I12.0 Hypertensive chronic kidney disease with stage 5 chronic kidney disease or end stage renal disease; E11.51 Type 2 diabetes mellitus with diabetic peripheral angiopathy without gangrene; A52.16 Charcot's arthropathy (tabetic); G83.9 Paralytic syndrome, unspecified; M48.00 Spinal stenosis, site unspecified; J96.01 Acute respiratory failure with hypoxia; H40.9 Unspecified glaucoma; R53.2 Functional quadriplegia; J44.9 Chronic obstructive pulmonary disease, unspecified; R41.82 Altered mental status, unspecified; G47.33 Obstructive sleep apnea (adult) (pediatric); D64.9 Anemia, unspecified; E11.22 Type 2 diabetes mellitus with diabetic chronic kidney disease; N18.6 End stage renal disease; Z68.42 Body mass index [BMI] 45.0-49.9, adult; G61.0 Guillain-Barre syndrome; E87.4 Mixed disorder of acid-base balance; E87.29 Other acidosis; Z74.01 Bed confinement status; Z99.2 Dependence on renal dialysis; Z99.3 Dependence on wheelchair
CPT/HCPCS: 0241U-QW; 31500; 36415; 36600; 70450-TC; 71045-TC-FY; 80048; 80053; 82140; 82550; 82553; 82803; 82962; 83605; 83735; 84100; 84460; 84484; 84520; 85025; 85027; 85610; 85730; 86803; 86850; 86900; 86901; 87040; 87340; 87389; 93005; 93010; 93306-TC; 93926-TC; 94002; 94640; 94660; 97162-GP; 99291; 99292; J1644; Q5106

== ENCOUNTER 2022-09-27 10:17 | Inpatient (IN) | payer OTHER ==
[2022-09-27 11:59] LABS: VENOUS BASE EXCESS -0.5 mmol/L (-2-2); VENOUS PCO2 59.4 mmHg (38-52); VENOUS PH 7.284 (7.310-7.410)
[2022-09-27 12:14] LABS: HEMATOCRIT 33.7 % (35.4-49); HEMOGLOBIN 10.7 GM/dL (11.7-16.9); MCH 30.2 pg (25.7-33.7); MCHC 31.7 g/dl (32.0-35.9); MEAN CELL VOLUME 95.4 fl (80-96); MEAN PLT VOLUME 9.1 fl (7.5-11.1); PLATELET COUNT 245 10^3/uL (134-434); POTASSIUM 4.3 mmol/L (3.5-5.1); RBC 3.53 M/mm3 (4.00-5.60); RDW 15.7 % (11.9-15.9); WHITE BLOOD COUNT 13.1 K/mm3 (4.0-10.0)
[2022-09-27 12:17] LABS: ALBUMIN 3.6 g/dl (3.4-5.0); BLOOD UREA NITROGEN 26.5 mg/dL (7-18); CALCIUM 8.5 mg/dL (8.5-10.1)
[2022-09-27 12:20] LABS: CREATININE 4.4 mg/dL (0.55-1.3)
[2022-09-27 12:22] LABS: BILIRUBIN,TOTAL 0.5 mg/dL (0.2-1); TOT PROT 7.3 g/dl (6.4-8.2)
[2022-09-27 12:41] LABS: ANISOCYTOSIS 1+; MACROCYTOSIS 0
[2022-09-27] MEDS ORDERED: PIPERACILLIN/TAZOB 3.375 GM 3.375 GM in DEXTROSE 5%-WATER - 50 ML IVPB ONE (12:42)
[2022-09-27] MEDS ORDERED: ACETAMINOPHEN 1000 MG/100 ML BAG IVPB ONE (12:48)
[2022-09-27] MEDS ORDERED: ACETAMINOPHEN INJECTION 100 ML IVPB ONE (12:48)
[2022-09-27] MEDS ORDERED: PIPERACILLIN/TAZOB 3.375 GM 3.375 GM/50 ML BAG IVPB ONE (12:48)
[2022-09-27 13:27] LABS: EPI CELLS 7 /uL (0-25.1); HYALINE CASTS 1 /uL (0-3.1); PH,URINE 5.5 (5.0-8.0); URINE APPEARANCE CLOUDY; URINE BACTERIA 1661 /uL (0-1359); URINE BILIRUBIN NEGATIVE (NEGATIVE); URINE COLOR YELLOW; URINE GLUCOSE (UA) NEGATIVE (NEGATIVE); URINE KETONE NEGATIVE (NEGATIVE); URINE LEUK ESTERASE 2+ (NEGATIVE); URINE NITRITE NEGATIVE (NEGATIVE); URINE PROTEIN 3+ (NEGATIVE); URINE RBC 17 /uL (0-23.9); URINE UROBILINOGEN 0.2 mg/dL (0.2-1.0); URINE WBC 764 /uL (0-25.8)
[2022-09-27 13:40] LABS: YEAST NEGATIVE (NEGATIVE)
[2022-09-27] MEDS ORDERED: SODIUM CHLORIDE 0.9% 500 ML INFUS.BAG IV ONE (15:31)
[2022-09-27 17:43] LABS: INR 1.12 (0.83-1.09)
[2022-09-27 17:45] LABS: ACTIVATED PTT 29.6 SECONDS (25.2-36.5)
[2022-09-27] MEDS: SEVELAMER CARBONATE 800 MG TAB (FP) PO SCH (21:28)
[2022-09-27] MEDS: TAMSULOSIN HCL 0.4 MG CAP PO SCH (21:28)
[2022-09-27] MEDS: GABAPENTIN 300 MG CAPSULE PO SCH (21:28)
[2022-09-27] MEDS: LATANOPROST 0.005% OPHTH SOLN 2.5ML BOTTLE OS SCH (21:29)
[2022-09-27] MEDS ORDERED: PIPERACILLIN/TAZOB 2.25 GM 2.25 GM in DEXTROSE 5%-WATER - 50 ML IVPB SCH (22:00)
[2022-09-28] MEDS: SEVELAMER CARBONATE 800 MG TAB (FP) PO SCH ×3 (06:24→21:42)
[2022-09-28] MEDS: GABAPENTIN 300 MG CAPSULE PO SCH ×3 (06:24→21:42)
[2022-09-28 08:57] LABS: HEMATOCRIT 30.7 % (35.4-49); HEMOGLOBIN 9.6 GM/dL (11.7-16.9); MCH 29.8 pg (25.7-33.7); MCHC 31.2 g/dl (32.0-35.9); MEAN CELL VOLUME 95.6 fl (80-96); MEAN PLT VOLUME 8.7 fl (7.5-11.1); PLATELET COUNT 217 10^3/uL (134-434); RBC 3.21 M/mm3 (4.00-5.60); RDW 15.4 % (11.9-15.9); WHITE BLOOD COUNT 19.4 K/mm3 (4.0-10.0)
[2022-09-28 09:35] LABS: ANISOCYTOSIS 0; HELMET CELLS 0; HOWELL-JOLLY BODIES 0; MACROCYTOSIS 0; OVALOCYTE 0; ROULEAU 0; SICKELED CELLS 0; TARGET CELLS 0; TEAR DROP CELLS 0; TOXIC GRANULATION 0
[2022-09-28] MEDS ORDERED: PIPERACILLIN/TAZOB 2.25 GM 2.25 GM in DEXTROSE 5%-WATER - 50 ML IVPB SCH (10:00)
[2022-09-28] MEDS ORDERED: FUROSEMIDE 40 MG TABLET (FP) PO SCH ×2 (10:00→17:21)
[2022-09-28 10:26] LABS: POTASSIUM 3.9 mmol/L (3.5-5.1)
[2022-09-28] MEDS: CLOPIDOGREL BISULFATE 75 MG TABLET (FP) PO SCH (10:28)
[2022-09-28] MEDS: ZINC SULFATE 220 MG CAPSULE (FP) PO SCH (10:28)
[2022-09-28] MEDS: PANTOPRAZOLE 40 MG TABLET PO SCH (10:29)
[2022-09-28] MEDS: COLLAGENASE CLOSTRIDIUM HIST. 30 GRAMS TUBE TP SCH (10:29)
[2022-09-28] MEDS: CALCITRIOL 0.25 MCG CAPSULE (FP) PO SCH (10:29)
[2022-09-28] MEDS: LOSARTAN POTASSIUM 25 MG TABLET PO SCH (10:29)
[2022-09-28] MEDS: amLODIPine BESYLATE 5 MG TABLET (FP) PO SCH (10:29)
[2022-09-28 10:36] LABS: CALCIUM 8.4 mg/dL (8.5-10.1)
[2022-09-28 10:37] LABS: ALBUMIN 3.2 g/dl (3.4-5.0); MAGNESIUM 1.9 mg/dL (1.8-2.4)
[2022-09-28 10:39] LABS: CREATININE 6.1 mg/dL (0.55-1.3); PHOSPHOROUS 3.6 mg/dL (2.5-4.9)
[2022-09-28 10:41] LABS: BILIRUBIN,TOTAL 1.2 mg/dL (0.2-1); TOT PROT 6.7 g/dl (6.4-8.2)
[2022-09-28] MEDS ORDERED: CEFAZOLIN SODIUM 2 GM in DEXTROSE 5%-WATER 100 ML IVPB ONE (11:43)
[2022-09-28] MEDS ORDERED: LIDOCAINE HCL 1%, 10 MG/ML (50 mL VIAL) SQ ONE (11:53)
[2022-09-28] MEDS ORDERED: VANCOMYCIN PREMIX 1.5 GM 1,500 MG/300 ML BAG IVPB ONE (12:30)
[2022-09-28] MEDS: ALBUTEROL SO4 2.5/IPRATROPIUM 0.5 INH SOL 3 ML VIAL.NEB. NEB SCH ×2 (15:50→21:30)
[2022-09-28] MEDS: TAMSULOSIN HCL 0.4 MG CAP PO SCH (21:42)
[2022-09-28] MEDS: LATANOPROST 0.005% OPHTH SOLN 2.5ML BOTTLE OS SCH (21:43)
[2022-09-29] MEDS: SEVELAMER CARBONATE 800 MG TAB (FP) PO SCH ×3 (05:37→18:24)
[2022-09-29] MEDS: GABAPENTIN 300 MG CAPSULE PO SCH ×3 (05:37→22:03)
[2022-09-29] MEDS: ALBUTEROL SO4 2.5/IPRATROPIUM 0.5 INH SOL 3 ML VIAL.NEB. NEB SCH ×4 (08:25→21:31)
[2022-09-29 09:41] LABS: CHLORIDE 103 mmol/L (98-107); POTASSIUM 4.6 mmol/L (3.5-5.1); SODIUM 138 mmol/L (136-145)
[2022-09-29 09:45] LABS: ALBUMIN 2.9 g/dl (3.4-5.0); ANION GAP 12 MMOL/L (8-16); BLOOD UREA NITROGEN 58.7 mg/dL (7-18); CO2 23 mmol/L (21-32); GLUCOSE,RANDOM 139 mg/dL (74-106); MAGNESIUM 2.1 mg/dL (1.8-2.4)
[2022-09-29 09:48] LABS: PHOSPHOROUS 6.2 mg/dL (2.5-4.9); SGPT/ALT 13 U/L (13-61)
[2022-09-29 09:49] LABS: BILIRUBIN,TOTAL 0.3 mg/dL (0.2-1); SGOT/AST 11 U/L (15-37)
[2022-09-29 09:50] LABS: TOT PROT 6.3 g/dl (6.4-8.2)
[2022-09-29 09:52] LABS: ALK PHOS 134 U/L (45-117)
[2022-09-29] MEDS: CALCITRIOL 0.25 MCG CAPSULE (FP) PO SCH (09:57)
[2022-09-29] MEDS: CLOPIDOGREL BISULFATE 75 MG TABLET (FP) PO SCH (09:57)
[2022-09-29] MEDS: LOSARTAN POTASSIUM 25 MG TABLET PO SCH (09:57)
[2022-09-29] MEDS: PANTOPRAZOLE 40 MG TABLET PO SCH (09:57)
[2022-09-29] MEDS: amLODIPine BESYLATE 5 MG TABLET (FP) PO SCH (09:57)
[2022-09-29] MEDS: ZINC SULFATE 220 MG CAPSULE (FP) PO SCH (09:57)
[2022-09-29] MEDS: COLLAGENASE CLOSTRIDIUM HIST. 30 GRAMS TUBE TP SCH (09:58)
[2022-09-29 10:01] LABS: CREATININE 7.7 mg/dL (0.55-1.3)
[2022-09-29 10:20] LABS: BASO % 0.2 % (0-2.0); EOS % 0.1 % (0-4.5); HEMOGLOBIN 9.5 GM/dL (11.7-16.9); LYMPH % 4.4 % (8-40); MCHC 30.7 g/dl (32.0-35.9); MEAN CELL VOLUME 97.8 fl (80-96); MEAN PLT VOLUME 8.7 fl (7.5-11.1); MONO % 5.1 % (3.8-10.2); NEUT % 90.2 % (42.8-82.8); PLATELET COUNT 219 10^3/uL (134-434); RBC 3.17 M/mm3 (4.00-5.60); RDW 15.6 % (11.9-15.9); WHITE BLOOD COUNT 13.4 K/mm3 (4.0-10.0)
[2022-09-29 10:27] LABS: INR 1.01 (0.83-1.09); PROTHROMBIN TIME (PATIENT) 11.7 SEC (9.7-13.0)
[2022-09-29] MEDS ORDERED: DAPTOMYCIN 1,000 MG in SODIUM CHLORIDE 100 ML IVPB SCH (16:00)
[2022-09-29] MEDS: DAPTOMYCIN 1,000 MG in SODIUM CHLORIDE 50 ML IVPB SCH (18:54)
[2022-09-29] MEDS: TAMSULOSIN HCL 0.4 MG CAP PO SCH (22:03)
[2022-09-29] MEDS: HEPARIN NA (PORCINE) 5,000 UNITS/ML 1ML VIAL SQ SCH (22:03)
[2022-09-29] MEDS: LATANOPROST 0.005% OPHTH SOLN 2.5ML BOTTLE OS SCH (23:16)
[2022-09-30] MEDS: GABAPENTIN 300 MG CAPSULE PO SCH ×3 (05:22→21:10)
[2022-09-30] MEDS: ALBUTEROL SO4 2.5/IPRATROPIUM 0.5 INH SOL 3 ML VIAL.NEB. NEB SCH ×4 (08:40→20:04)
[2022-09-30] MEDS ORDERED: LOSARTAN POTASSIUM 25 MG TABLET PO SCH (09:43)
[2022-09-30] MEDS ORDERED: amLODIPine BESYLATE 5 MG TABLET (FP) PO SCH (09:43)
[2022-09-30] MEDS: CALCITRIOL 0.25 MCG CAPSULE (FP) PO SCH (09:44)
[2022-09-30] MEDS: SEVELAMER CARBONATE 800 MG TAB (FP) PO SCH ×3 (09:44→19:01)
[2022-09-30] MEDS: CLOPIDOGREL BISULFATE 75 MG TABLET (FP) PO SCH ×2 (09:44→10:15)
[2022-09-30] MEDS: ZINC SULFATE 220 MG CAPSULE (FP) PO SCH (09:45)
[2022-09-30] MEDS: HEPARIN NA (PORCINE) 5,000 UNITS/ML 1ML VIAL SQ SCH ×2 (09:45→21:10)
[2022-09-30 10:17] LABS: HEMATOCRIT 29.3 % (35.4-49); HEMOGLOBIN 9.1 GM/dL (11.7-16.9); MCH 30.2 pg (25.7-33.7); MCHC 31.1 g/dl (32.0-35.9); MEAN PLT VOLUME 8.4 fl (7.5-11.1); PLATELET COUNT 234 10^3/uL (134-434); RBC 3.02 M/mm3 (4.00-5.60); RDW 15.6 % (11.9-15.9); WHITE BLOOD COUNT 10.9 K/mm3 (4.0-10.0)
[2022-09-30] MEDS: FUROSEMIDE 40 MG TABLET (FP) PO SCH (10:43)
[2022-09-30 10:46] LABS: CHLORIDE 104 mmol/L (98-107); POTASSIUM 4.6 mmol/L (3.5-5.1); SODIUM 137 mmol/L (136-145)
[2022-09-30 10:55] LABS: ANION GAP 10 MMOL/L (8-16); BLOOD UREA NITROGEN 77.8 mg/dL (7-18); CALCIUM 7.7 mg/dL (8.5-10.1); CO2 23 mmol/L (21-32); GLUCOSE,RANDOM 164 mg/dL (74-106); MAGNESIUM 2.2 mg/dL (1.8-2.4)
[2022-09-30 10:58] LABS: PHOSPHOROUS 5.4 mg/dL (2.5-4.9)
[2022-09-30 10:59] LABS: CREATININE 9.1 mg/dL (0.55-1.3)
[2022-09-30] MEDS ORDERED: INSULIN SLIDING SCALE (NOVOLOG) 1 VIAL SQ ONE (11:08)
[2022-09-30] MEDS ORDERED: SODIUM CHLORIDE 250 ML IV STA ×2 (13:23→14:53)
[2022-09-30] MEDS: COLLAGENASE CLOSTRIDIUM HIST. 30 GRAMS TUBE TP SCH (19:12)
[2022-09-30] MEDS: LATANOPROST 0.005% OPHTH SOLN 2.5ML BOTTLE OS SCH (21:10)
[2022-09-30] MEDS: TAMSULOSIN HCL 0.4 MG CAP PO SCH (21:10)
[2022-10-01] MEDS: GABAPENTIN 300 MG CAPSULE PO SCH ×3 (06:30→21:36)
[2022-10-01] MEDS: ALBUTEROL SO4 2.5/IPRATROPIUM 0.5 INH SOL 3 ML VIAL.NEB. NEB SCH ×4 (07:45→20:00)
[2022-10-01] MEDS: SEVELAMER CARBONATE 800 MG TAB (FP) PO SCH ×3 (09:48→18:32)
[2022-10-01] MEDS: HEPARIN NA (PORCINE) 5,000 UNITS/ML 1ML VIAL SQ SCH ×2 (09:49→21:36)
[2022-10-01] MEDS: ZINC SULFATE 220 MG CAPSULE (FP) PO SCH (09:49)
[2022-10-01] MEDS: CLOPIDOGREL BISULFATE 75 MG TABLET (FP) PO SCH (09:49)
[2022-10-01] MEDS: CALCITRIOL 0.25 MCG CAPSULE (FP) PO SCH (09:49)
[2022-10-01] MEDS: FUROSEMIDE 40 MG TABLET (FP) PO SCH (09:52)
[2022-10-01 10:08] LABS: HEMATOCRIT 27.2 % (35.4-49); HEMOGLOBIN 8.7 GM/dL (11.7-16.9); MCH 30.4 pg (25.7-33.7); MEAN CELL VOLUME 95.1 fl (80-96); MEAN PLT VOLUME 7.9 fl (7.5-11.1); PLATELET COUNT 251 10^3/uL (134-434); RBC 2.86 M/mm3 (4.00-5.60); RDW 15.7 % (11.9-15.9)
[2022-10-01 10:45] LABS: CHLORIDE 103 mmol/L (98-107); POTASSIUM 4.7 mmol/L (3.5-5.1); SODIUM 135 mmol/L (136-145)
[2022-10-01 10:55] LABS: ANION GAP 13 MMOL/L (8-16); CALCIUM 7.7 mg/dL (8.5-10.1); CO2 20 mmol/L (21-32); GLUCOSE,RANDOM 171 mg/dL (74-106)
[2022-10-01 11:02] LABS: CREATININE 10.2 mg/dL (0.55-1.3)
[2022-10-01] MEDS: DAPTOMYCIN 1,000 MG in SODIUM CHLORIDE 50 ML IVPB SCH (18:32)
[2022-10-01] MEDS: TAMSULOSIN HCL 0.4 MG CAP PO SCH (21:36)
[2022-10-01] MEDS: LATANOPROST 0.005% OPHTH SOLN 2.5ML BOTTLE OS SCH ×2 (21:37→21:48)
[2022-10-02] MEDS: GABAPENTIN 300 MG CAPSULE PO SCH ×3 (05:36→21:04)
[2022-10-02] MEDS: ALBUTEROL SO4 2.5/IPRATROPIUM 0.5 INH SOL 3 ML VIAL.NEB. NEB SCH ×4 (08:10→20:20)
[2022-10-02] MEDS: SEVELAMER CARBONATE 800 MG TAB (FP) PO SCH ×3 (09:23→17:03)
[2022-10-02] MEDS: ZINC SULFATE 220 MG CAPSULE (FP) PO SCH (09:24)
[2022-10-02] MEDS: CLOPIDOGREL BISULFATE 75 MG TABLET (FP) PO SCH (09:24)
[2022-10-02] MEDS: HEPARIN NA (PORCINE) 5,000 UNITS/ML 1ML VIAL SQ SCH ×2 (09:24→21:04)
[2022-10-02] MEDS: CALCITRIOL 0.25 MCG CAPSULE (FP) PO SCH (09:24)
[2022-10-02] MEDS: FUROSEMIDE 40 MG TABLET (FP) PO SCH (09:24)
[2022-10-02 10:14] LABS: CHLORIDE 101 mmol/L (98-107); POTASSIUM 4.9 mmol/L (3.5-5.1); SODIUM 134 mmol/L (136-145)
[2022-10-02 10:18] LABS: CALCIUM 7.6 mg/dL (8.5-10.1)
[2022-10-02 10:20] LABS: ANION GAP 15 MMOL/L (8-16); BLOOD UREA NITROGEN 96.6 mg/dL (7-18); CO2 18 mmol/L (21-32); GLUCOSE,RANDOM 193 mg/dL (74-106); MAGNESIUM 2.3 mg/dL (1.8-2.4)
[2022-10-02 10:22] LABS: PHOSPHOROUS 5.5 mg/dL (2.5-4.9)
[2022-10-02 10:28] LABS: CREATININE 11.4 mg/dL (0.55-1.3)
[2022-10-02 11:34] LABS: HEMATOCRIT 25.6 % (35.4-49); HEMOGLOBIN 8.1 GM/dL (11.7-16.9); MCH 30.3 pg (25.7-33.7); MCHC 31.6 g/dl (32.0-35.9); MEAN CELL VOLUME 95.9 fl (80-96); MEAN PLT VOLUME 8.9 fl (7.5-11.1); PLATELET COUNT 270 10^3/uL (134-434); RBC 2.67 M/mm3 (4.00-5.60); RDW 14.7 % (11.9-15.9); WHITE BLOOD COUNT 7.5 K/mm3 (4.0-10.0)
[2022-10-02 14:46] VITALS: BMI 56.3
[2022-10-02] MEDS: PATIENT'S OWN MEDICATION (NON-FORMULARY) (Linaclotide [Linzess] 145 MCG Capsule) PO SCH (19:27)
[2022-10-02] MEDS: TAMSULOSIN HCL 0.4 MG CAP PO SCH (21:04)
[2022-10-02] MEDS: LATANOPROST 0.005% OPHTH SOLN 2.5ML BOTTLE OS SCH (21:12)
[2022-10-03] MEDS: GABAPENTIN 300 MG CAPSULE PO SCH ×3 (06:03→22:58)
[2022-10-03] MEDS ORDERED: LIDOCAINE HCL 1%, 10 MG/ML (10ML VIAL) MDV ONE (07:33)
[2022-10-03] MEDS: ALBUTEROL SO4 2.5/IPRATROPIUM 0.5 INH SOL 3 ML VIAL.NEB. NEB SCH ×4 (08:10→20:30)
[2022-10-03] MEDS: HEPARIN NA (PORCINE) 5,000 UNITS/ML 1ML VIAL SQ SCH ×2 (09:13→22:58)
[2022-10-03] MEDS: FUROSEMIDE 40 MG TABLET (FP) PO SCH (09:15)
[2022-10-03] MEDS: CALCITRIOL 0.25 MCG CAPSULE (FP) PO SCH (09:16)
[2022-10-03] MEDS: CLOPIDOGREL BISULFATE 75 MG TABLET (FP) PO SCH (09:16)
[2022-10-03] MEDS: PATIENT'S OWN MEDICATION (NON-FORMULARY) (Linaclotide [Linzess] 145 MCG Capsule) PO SCH ×2 (09:16→09:23)
[2022-10-03] MEDS: SEVELAMER CARBONATE 800 MG TAB (FP) PO SCH ×3 (09:16→18:04)
[2022-10-03] MEDS: ZINC SULFATE 220 MG CAPSULE (FP) PO SCH (09:16)
[2022-10-03] MEDS ORDERED: MIDAZOLAM HCL 2 MG/2 ML SINGLE DOSE VIAL ONE (09:44)
[2022-10-03] MEDS ORDERED: KETAMINE HCL 500 MG/10 ML VIAL ONE (09:45)
[2022-10-03] MEDS ORDERED: ceFAZolin SODIUM 1 GM VIAL IVPB ONE (10:10)
[2022-10-03] MEDS ORDERED: LIDOCAINE HCL 1%, 10 MG/ML (50 mL VIAL) INF ONE (10:16)
[2022-10-03 10:25] LABS: HEMATOCRIT 25.3 % (35.4-49); HEMOGLOBIN 8.2 GM/dL (11.7-16.9); MCH 30.9 pg (25.7-33.7); MCHC 32.6 g/dl (32.0-35.9); MEAN CELL VOLUME 94.8 fl (80-96); MEAN PLT VOLUME 8.1 fl (7.5-11.1); PLATELET COUNT 305 10^3/uL (134-434); RBC 2.67 M/mm3 (4.00-5.60); RDW 15.2 % (11.9-15.9); WHITE BLOOD COUNT 9.1 K/mm3 (4.0-10.0)
[2022-10-03] MEDS ORDERED: ONDANSETRON 4 MG/2 ML VIAL ONE (10:30)
[2022-10-03] MEDS ORDERED: DEXAMETHASONE SOD PHOSPHATE 4 MG/1 ML VIAL ONE (10:30)
[2022-10-03] MEDS ORDERED: ceFAZolin SODIUM 1 GM VIAL ONE (10:30)
[2022-10-03 10:44] LABS: CHLORIDE 104 mmol/L (98-107); SODIUM 136 mmol/L (136-145)
[2022-10-03 10:47] LABS: ANION GAP 13 MMOL/L (8-16); CO2 20 mmol/L (21-32); MAGNESIUM 2.3 mg/dL (1.8-2.4)
[2022-10-03 10:48] LABS: GLUCOSE,RANDOM 103 mg/dL (74-106)
[2022-10-03 10:51] LABS: PHOSPHOROUS 5.2 mg/dL (2.5-4.9)
[2022-10-03 11:34] LABS: BLOOD UREA NITROGEN 110.3 mg/dL (7-18); CREATININE 12.2 mg/dL (0.55-1.3)
[2022-10-03] MEDS ORDERED: EPOETIN ALFA-EPBX 10,000 UNIT/ML VIAL SQ ONE (14:02)
[2022-10-03] MEDS ORDERED: SODIUM CHLORIDE 250 ML IV PRN (14:02)
[2022-10-03] MEDS: DAPTOMYCIN 1,000 MG in SODIUM CHLORIDE 50 ML IVPB SCH (18:05)
[2022-10-03] MEDS: TAMSULOSIN HCL 0.4 MG CAP PO SCH (22:58)
[2022-10-03] MEDS: LATANOPROST 0.005% OPHTH SOLN 2.5ML BOTTLE OS SCH (23:00)
[2022-10-04] MEDS: GABAPENTIN 300 MG CAPSULE PO SCH ×3 (06:03→22:27)
[2022-10-04] MEDS: ALBUTEROL SO4 2.5/IPRATROPIUM 0.5 INH SOL 3 ML VIAL.NEB. NEB SCH ×4 (07:05→20:26)
[2022-10-04] MEDS ORDERED: SODIUM CHLORIDE 250 ML IV PRN (07:30)
[2022-10-04] MEDS ORDERED: EPOETIN ALFA-EPBX 10,000 UNIT/ML VIAL IVPUSH ONE (07:45)
[2022-10-04 09:27] LABS: HEMATOCRIT 24.1 % (35.4-49); MCH 30.8 pg (25.7-33.7); MCHC 33.2 g/dl (32.0-35.9); MEAN CELL VOLUME 92.8 fl (80-96); MEAN PLT VOLUME 7.6 fl (7.5-11.1); PLATELET COUNT 308 10^3/uL (134-434); RDW 15.2 % (11.9-15.9)
[2022-10-04 09:48] LABS: CHLORIDE 104 mmol/L (98-107); POTASSIUM 4.5 mmol/L (3.5-5.1); SODIUM 140 mmol/L (136-145)
[2022-10-04 09:51] LABS: ANION GAP 11 MMOL/L (8-16); CALCIUM 8.2 mg/dL (8.5-10.1); CO2 26 mmol/L (21-32); GLUCOSE,RANDOM 118 mg/dL (74-106)
[2022-10-04 09:52] LABS: MAGNESIUM 2.2 mg/dL (1.8-2.4)
[2022-10-04 09:55] LABS: BLOOD UREA NITROGEN 82.8 mg/dL (7-18); CREATININE 9.4 mg/dL (0.55-1.3); PHOSPHOROUS 4.6 mg/dL (2.5-4.9)
[2022-10-04] MEDS: SEVELAMER CARBONATE 800 MG TAB (FP) PO SCH ×3 (12:31→17:19)
[2022-10-04] MEDS: CLOPIDOGREL BISULFATE 75 MG TABLET (FP) PO SCH (12:31)
[2022-10-04] MEDS: CALCITRIOL 0.25 MCG CAPSULE (FP) PO SCH (12:32)
[2022-10-04] MEDS: HEPARIN NA (PORCINE) 5,000 UNITS/ML 1ML VIAL SQ SCH ×2 (12:32→22:27)
[2022-10-04] MEDS: ZINC SULFATE 220 MG CAPSULE (FP) PO SCH (12:32)
[2022-10-04] MEDS: LOSARTAN POTASSIUM 25 MG TABLET PO SCH (12:35)
[2022-10-04] MEDS: FUROSEMIDE 40 MG TABLET (FP) PO SCH (12:35)
[2022-10-04] MEDS: PATIENT'S OWN MEDICATION (NON-FORMULARY) (Linaclotide [Linzess] 145 MCG) PO SCH ×2 (12:38→13:00)
[2022-10-04] MEDS: TAMSULOSIN HCL 0.4 MG CAP PO SCH (22:26)
[2022-10-04] MEDS: LATANOPROST 0.005% OPHTH SOLN 2.5ML BOTTLE OS SCH (22:29)
[2022-10-05] MEDS: GABAPENTIN 300 MG CAPSULE PO SCH ×3 (05:54→22:26)
[2022-10-05] MEDS: ALBUTEROL SO4 2.5/IPRATROPIUM 0.5 INH SOL 3 ML VIAL.NEB. NEB SCH ×4 (08:55→20:16)
[2022-10-05] MEDS: SEVELAMER CARBONATE 800 MG TAB (FP) PO SCH ×3 (08:58→18:43)
[2022-10-05] MEDS: CALCITRIOL 0.25 MCG CAPSULE (FP) PO SCH (10:17)
[2022-10-05] MEDS: FUROSEMIDE 40 MG TABLET (FP) PO SCH (10:17)
[2022-10-05] MEDS: LOSARTAN POTASSIUM 25 MG TABLET PO SCH (10:17)
[2022-10-05] MEDS: CLOPIDOGREL BISULFATE 75 MG TABLET (FP) PO SCH (10:17)
[2022-10-05] MEDS: ZINC SULFATE 220 MG CAPSULE (FP) PO SCH (10:18)
[2022-10-05] MEDS: PATIENT'S OWN MEDICATION (NON-FORMULARY) (Linaclotide [Linzess] 145 MCG) PO SCH ×2 (10:18→10:37)
[2022-10-05] MEDS: HEPARIN NA (PORCINE) 5,000 UNITS/ML 1ML VIAL SQ SCH ×2 (10:18→22:26)
[2022-10-05] MEDS: DAPTOMYCIN 1,000 MG in SODIUM CHLORIDE 50 ML IVPB SCH (17:08)
[2022-10-05] MEDS: TAMSULOSIN HCL 0.4 MG CAP PO SCH (22:26)
[2022-10-05] MEDS: LATANOPROST 0.005% OPHTH SOLN 2.5ML BOTTLE OS SCH (22:26)
[2022-10-06] MEDS: GABAPENTIN 300 MG CAPSULE PO SCH ×3 (05:46→22:20)
[2022-10-06] MEDS: ALBUTEROL SO4 2.5/IPRATROPIUM 0.5 INH SOL 3 ML VIAL.NEB. NEB SCH ×4 (08:02→20:13)
[2022-10-06] MEDS: SEVELAMER CARBONATE 800 MG TAB (FP) PO SCH ×3 (08:50→17:17)
[2022-10-06] MEDS: HEPARIN NA (PORCINE) 5,000 UNITS/ML 1ML VIAL SQ SCH ×3 (10:23→22:20)
[2022-10-06] MEDS: CLOPIDOGREL BISULFATE 75 MG TABLET (FP) PO SCH (10:24)
[2022-10-06] MEDS: LOSARTAN POTASSIUM 25 MG TABLET PO SCH (10:24)
[2022-10-06] MEDS: FUROSEMIDE 40 MG TABLET (FP) PO SCH (10:24)
[2022-10-06] MEDS: ZINC SULFATE 220 MG CAPSULE (FP) PO SCH (10:24)
[2022-10-06] MEDS: PATIENT'S OWN MEDICATION (NON-FORMULARY) (Linaclotide [Linzess] 145 MCG) PO SCH ×2 (10:24→10:33)
[2022-10-06] MEDS: CALCITRIOL 0.25 MCG CAPSULE (FP) PO SCH (10:24)
[2022-10-06 11:06] LABS: BASO % 0.7 % (0-2.0); EOS % 2.5 % (0-4.5); HEMATOCRIT 25.6 % (35.4-49); HEMOGLOBIN 8.1 GM/dL (11.7-16.9); LYMPH % 17.5 % (8-40); MCH 30.2 pg (25.7-33.7); MCHC 31.6 g/dl (32.0-35.9); MEAN CELL VOLUME 95.7 fl (80-96); MEAN PLT VOLUME 7.6 fl (7.5-11.1); MONO % 7.3 % (3.8-10.2); PLATELET COUNT 387 10^3/uL (134-434); RBC 2.68 M/mm3 (4.00-5.60); RDW 14.9 % (11.9-15.9); WHITE BLOOD COUNT 8.3 K/mm3 (4.0-10.0)
[2022-10-06 14:12] LABS: ALBUMIN 2.9 g/dl (3.4-5.0); ALK PHOS 113 U/L (45-117); ANION GAP 9 MMOL/L (8-16); BILIRUBIN,TOTAL 0.2 mg/dL (0.2-1); BLOOD UREA NITROGEN 67.5 mg/dL (7-18); CALCIUM 8.2 mg/dL (8.5-10.1); CHLORIDE 102 mmol/L (98-107); CO2 26 mmol/L (21-32); CREATININE 7.9 mg/dL (0.55-1.3); GLUCOSE,RANDOM 118 mg/dL (74-106); POTASSIUM 4.7 mmol/L (3.5-5.1); SGOT/AST 13 U/L (15-37); SGPT/ALT < 6 U/L (13-61); SODIUM 137 mmol/L (136-145); TOT PROT 6.4 g/dl (6.4-8.2)
[2022-10-06] MEDS ORDERED: PROPOFOL 20 ML ONE ×2 (16:17→20:09)
[2022-10-06] MEDS ORDERED: ROCURONIUM BROMIDE 50 MG/5 ML SYRINGE ONE ×2 (18:03→20:50)
[2022-10-06] MEDS ORDERED: ceFAZolin SODIUM 1 GM VIAL IVPB ONE (18:15)
[2022-10-06] MEDS ORDERED: PHENYLEPHRINE HCL 10 MG/1 ML SINGLE DOSE VIAL ONE ×2 (18:38→21:09)
[2022-10-06] MEDS ORDERED: POVIDONE-IODINE OINTMENT 10% - 28.4 GM TUBE ONE (18:41)
[2022-10-06] MEDS ORDERED: SUGAMMADEX SODIUM 200 MG/2 ML VIAL ONE ×4 (19:57→21:09)
[2022-10-06] MEDS ORDERED: ONDANSETRON 4 MG/2 ML VIAL IVPUSH PRN (21:35)
[2022-10-06] MEDS: TAMSULOSIN HCL 0.4 MG CAP PO SCH (22:20)
[2022-10-06 22:26] LABS: ARTERIAL BLD GAS O2 SATURATION 93.9 % (95-98); ARTERIAL BLOOD GAS BASE EXCESS -2.3 mmol/L (-2-2); ARTERIAL BLOOD GAS PO2 89.3 mmHg (80-100)
[2022-10-06 22:29] LABS: ALLENS TEST POSITIVE
[2022-10-06 22:30] LABS: VENT MODE S/T; VENT RATE 20
[2022-10-06 22:32] LABS: ARTERIAL BLOOD GAS pH 7.164 (7.350-7.450)
[2022-10-06] MEDS: LATANOPROST 0.005% OPHTH SOLN 2.5ML BOTTLE OS SCH (23:08)
[2022-10-07] MEDS: GABAPENTIN 300 MG CAPSULE PO SCH ×3 (05:56→22:05)
[2022-10-07] MEDS: SEVELAMER CARBONATE 800 MG TAB (FP) PO SCH ×3 (08:00→17:18)
[2022-10-07] MEDS: ALBUTEROL SO4 2.5/IPRATROPIUM 0.5 INH SOL 3 ML VIAL.NEB. NEB SCH ×3 (08:10→21:42)
[2022-10-07] MEDS ORDERED: EPOETIN ALFA-EPBX 10,000 UNIT/ML VIAL IVPUSH ONE (09:15)
[2022-10-07 09:50] LABS: HEMATOCRIT 25.8 % (35.4-49); MCH 30.2 pg (25.7-33.7); MCHC 31.1 g/dl (32.0-35.9); MEAN CELL VOLUME 97.2 fl (80-96); MEAN PLT VOLUME 7.2 fl (7.5-11.1); PLATELET COUNT 354 10^3/uL (134-434); RBC 2.65 M/mm3 (4.00-5.60); RDW 14.9 % (11.9-15.9); WHITE BLOOD COUNT 11.3 K/mm3 (4.0-10.0)
[2022-10-07 10:10] LABS: POTASSIUM 4.8 mmol/L (3.5-5.1)
[2022-10-07 10:12] LABS: CALCIUM 7.6 mg/dL (8.5-10.1)
[2022-10-07 10:13] LABS: BLOOD UREA NITROGEN 58.3 mg/dL (7-18); MAGNESIUM 2.2 mg/dL (1.8-2.4)
[2022-10-07 10:20] LABS: PHOSPHOROUS 5.9 mg/dL (2.5-4.9)
[2022-10-07 10:25] LABS: CREATININE 7.4 mg/dL (0.55-1.3)
[2022-10-07] MEDS: CALCITRIOL 0.25 MCG CAPSULE (FP) PO SCH (12:10)
[2022-10-07] MEDS: FUROSEMIDE 40 MG TABLET (FP) PO SCH (12:10)
[2022-10-07] MEDS: CLOPIDOGREL BISULFATE 75 MG TABLET (FP) PO SCH (12:10)
[2022-10-07] MEDS: HEPARIN NA (PORCINE) 5,000 UNITS/ML 1ML VIAL SQ SCH ×2 (12:10→22:10)
[2022-10-07] MEDS: LOSARTAN POTASSIUM 25 MG TABLET PO SCH (12:10)
[2022-10-07] MEDS: ZINC SULFATE 220 MG CAPSULE (FP) PO SCH (12:11)
[2022-10-07] MEDS: PATIENT'S OWN MEDICATION (NON-FORMULARY) (Linaclotide [Linzess] 145 MCG) PO SCH (12:11)
[2022-10-07] MEDS ORDERED: DAPTOMYCIN 1,000 MG in SODIUM CHLORIDE 50 ML IVPB SCH (17:30)
[2022-10-07] MEDS ORDERED: LATANOPROST 0.005% OPHTH SOLN 2.5ML BOTTLE OS SCH (22:00)
[2022-10-07] MEDS ORDERED: TAMSULOSIN HCL 0.4 MG CAP PO SCH (22:00)
[2022-10-08] MEDS: GABAPENTIN 300 MG CAPSULE PO SCH (06:39)
[2022-10-08] MEDS: SEVELAMER CARBONATE 800 MG TAB (FP) PO SCH ×2 (08:59→10:09)
[2022-10-08] MEDS: HEPARIN NA (PORCINE) 5,000 UNITS/ML 1ML VIAL SQ SCH (10:09)
[2022-10-08] MEDS: FUROSEMIDE 40 MG TABLET (FP) PO SCH (10:09)
[2022-10-08] MEDS: LOSARTAN POTASSIUM 25 MG TABLET PO SCH (10:10)
[2022-10-08] MEDS: CALCITRIOL 0.25 MCG CAPSULE (FP) PO SCH (10:10)
[2022-10-08] MEDS: ZINC SULFATE 220 MG CAPSULE (FP) PO SCH (10:10)
[2022-10-08] MEDS: CLOPIDOGREL BISULFATE 75 MG TABLET (FP) PO SCH (10:10)
[2022-10-08] MEDS: PATIENT'S OWN MEDICATION (NON-FORMULARY) (Linaclotide [Linzess] 145 MCG) PO SCH (10:13)
[2022-10-08] MEDS: ALBUTEROL SO4 2.5/IPRATROPIUM 0.5 INH SOL 3 ML VIAL.NEB. NEB SCH ×2 (10:15→11:47)
[2022-10-08 11:03] VITALS: PULSE 87
[2022-10-08] MEDS ORDERED: GABAPENTIN 300 MG CAPSULE PO SCH (14:00)
[2022-10-08 15:31] VITALS: BP 134/56; RESP 22; TEMP 98.2
[2022-10-08] MEDS ORDERED: ALBUTEROL SO4 2.5/IPRATROPIUM 0.5 INH SOL 3 ML VIAL.NEB. NEB SCH (16:00)
[2022-10-08] MEDS ORDERED: SEVELAMER CARBONATE 800 MG TAB (FP) PO SCH (17:30)
[2022-10-08] MEDS ORDERED: TAMSULOSIN HCL 0.4 MG CAP PO SCH (22:00)
[2022-10-08] MEDS ORDERED: LATANOPROST 0.005% OPHTH SOLN 2.5ML BOTTLE OS SCH (22:00)
[2022-10-08] MEDS ORDERED: HEPARIN NA (PORCINE) 5,000 UNITS/ML 1ML VIAL SQ SCH (22:00)
[2022-10-09] MEDS ORDERED: CLOPIDOGREL BISULFATE 75 MG TABLET (FP) PO SCH (10:00)
[2022-10-09] MEDS ORDERED: PATIENT'S OWN MEDICATION (NON-FORMULARY) (Linaclotide [Linzess] 145 MCG) PO SCH (10:00)
[2022-10-09] MEDS ORDERED: ZINC SULFATE 220 MG CAPSULE (FP) PO SCH (10:00)
[2022-10-09] MEDS ORDERED: CALCITRIOL 0.25 MCG CAPSULE (FP) PO SCH (10:00)
[2022-10-09] MEDS ORDERED: FUROSEMIDE 40 MG TABLET (FP) PO SCH (10:00)
[2022-10-09] MEDS ORDERED: LOSARTAN POTASSIUM 25 MG TABLET PO SCH (10:00)
[2022-10-09] MEDS ORDERED: DAPTOMYCIN 1,000 MG in SODIUM CHLORIDE 50 ML IVPB SCH (17:30)
== END 2022-10-08 16:10 | disposition home or self-care (01) | DRG 711 ==
LOC: JER 10:17 → JERBED 14:38 → J5S 15:48 → JICU 10-06 23:15 → J4W 10-07 17:33
PROVIDERS: ADMIT Internal Medicine; ATTEND Internal Medicine
PROC: 02PYX3Z Removal of Infusion Device from Great Vessel, External Approach (ICD-10-PCS; 2022-09-28)
PROC: 02H633Z Insertion of Infusion Device into Right Atrium, Percutaneous Approach (ICD-10-PCS; 2022-10-03)
PROC: B548ZZA Ultrasonography of Superior Vena Cava, Guidance (ICD-10-PCS; 2022-10-03)
PROC: 05BC0ZZ Excision of Left Basilic Vein, Open Approach (ICD-10-PCS; 2022-10-06)
PROC: 031809D Bypass Left Brachial Artery to Upper Arm Vein with Autologous Venous Tissue, Open Approach (ICD-10-PCS; principal; 2022-10-06 17:00)
PROC: 5A1D70Z Performance of Urinary Filtration, Intermittent, Less than 6 Hours Per Day (ICD-10-PCS; 2022-10-07)
DX: T80.211A Bloodstream infection due to central venous catheter, initial encounter (principal); A41.02 Sepsis due to Methicillin resistant Staphylococcus aureus; J95.821 Acute postprocedural respiratory failure; G61.0 Guillain-Barre syndrome; E66.01 Morbid (severe) obesity due to excess calories; G82.20 Paraplegia, unspecified; I12.0 Hypertensive chronic kidney disease with stage 5 chronic kidney disease or end stage renal disease; L97.429 Non-pressure chronic ulcer of left heel and midfoot with unspecified severity; N18.6 End stage renal disease; Z68.42 Body mass index [BMI] 45.0-49.9, adult; E11.9 Type 2 diabetes mellitus without complications; N39.0 Urinary tract infection, site not specified; Y83.9 Surgical procedure, unspecified as the cause of abnormal reaction of the patient, or of later complication, without mention of misadventure at the time of the procedure; G47.33 Obstructive sleep apnea (adult) (pediatric); N40.0 Benign prostatic hyperplasia without lower urinary tract symptoms; H40.9 Unspecified glaucoma
CPT/HCPCS: 0241U-QW; 36415; 36600; 71045-TC-FY; 76000-TC-FY; 80048; 80053; 81003; 82550; 82553; 82803; 82962; 83605; 83735; 84100; 85025; 85027; 85610; 85730; 86803; 86850; 86900; 86901; 87040; 87070; 87086; 87186; 87205; 87340; 93005; 93010; 93306-TC; 93985; 94640; 94660; 94760; 97162-GP; 99285-25; C1750; G0480; J0878; J1644; Q5106

== ENCOUNTER 2022-11-10 13:18 | Emergency (ER) | payer OTHER ==
[2022-11-10 13:56] VITALS: TEMP 97.8; BMI 48.8
[2022-11-10 15:33] LABS: BASO % 0.8 % (0-2.0); EOS % 5.3 % (0-4.5); HEMATOCRIT 30.5 % (35.4-49); HEMOGLOBIN 9.8 GM/dL (11.7-16.9); LYMPH % 17.3 % (8-40); MCH 30.4 pg (25.7-33.7); MEAN CELL VOLUME 94.7 fl (80-96); MEAN PLT VOLUME 7.2 fl (7.5-11.1); MONO % 9.7 % (3.8-10.2); NEUT % 66.9 % (42.8-82.8); PLATELET COUNT 327 10^3/uL (134-434); RBC 3.22 M/mm3 (4.00-5.60); RDW 15.5 % (11.9-15.9)
[2022-11-10 15:38] LABS: INR 0.93 (0.83-1.09); PROTHROMBIN TIME (PATIENT) 10.8 SEC (9.7-13.0)
[2022-11-10 15:40] LABS: ACTIVATED PTT 29.7 SECONDS (25.2-36.5)
[2022-11-10 16:01] LABS: CHLORIDE 102 mmol/L (98-107); POTASSIUM 4.8 mmol/L (3.5-5.1); SODIUM 137 mmol/L (136-145)
[2022-11-10 16:03] LABS: CALCIUM 7.8 mg/dL (8.5-10.1)
[2022-11-10 16:04] LABS: ALBUMIN 3.2 g/dl (3.4-5.0); ANION GAP 9 MMOL/L (8-16); BLOOD UREA NITROGEN 73.6 mg/dL (7-18); CO2 25 mmol/L (21-32); GLUCOSE,RANDOM 106 mg/dL (74-106); MAGNESIUM 2.2 mg/dL (1.8-2.4)
[2022-11-10 16:06] LABS: PHOSPHOROUS 4.9 mg/dL (2.5-4.9)
[2022-11-10 16:07] LABS: SGOT/AST 10 U/L (15-37); SGPT/ALT 12 U/L (13-61)
[2022-11-10 16:08] LABS: BILIRUBIN,TOTAL 0.4 mg/dL (0.2-1); TOT PROT 6.8 g/dl (6.4-8.2)
[2022-11-10 16:10] LABS: ALK PHOS 240 U/L (45-117)
[2022-11-10 17:06] VITALS: BP 158/56; PULSE 89; RESP 16
[2022-11-10 17:55] LABS: CREATININE 8.8 mg/dL (0.55-1.3)
== END 2022-11-10 17:14 | disposition home or self-care (01) ==
LOC: JER 13:18
DX: I12.0 Hypertensive chronic kidney disease with stage 5 chronic kidney disease or end stage renal disease (principal); E11.22 Type 2 diabetes mellitus with diabetic chronic kidney disease; N18.6 End stage renal disease; Z99.2 Dependence on renal dialysis; Z20.1 Contact with and (suspected) exposure to tuberculosis; Z20.822 Contact with and (suspected) exposure to COVID-19
CPT/HCPCS: 0241U-QW; 36415; 71045-TC-FY; 80053; 82550; 82553; 83735; 84100; 84484; 85025; 85610; 85730; 86850; 86900; 86901; 93005; 93010; 99285-25

== ENCOUNTER 2023-06-25 04:10 | Day surgery (SDC) | payer OTHER ==
[2023-06-23 10:54] VITALS: BMI 37.3
[2023-06-25] MEDS ORDERED: PROMETHAZINE HCL 25 MG/1 ML VIAL IVPB PRN (08:33)
[2023-06-25] MEDS ORDERED: ONDANSETRON 4 MG/2 ML VIAL IVPUSH PRN (08:33)
[2023-06-25] MEDS ORDERED: SODIUM CHLORIDE 1,000 ML IV SCH (08:45)
[2023-06-25] MEDS ORDERED: HEPARIN NA (PORCINE) 5,000 UNITS/ML 1ML VIAL ONE (09:49)
[2023-06-25] MEDS ORDERED: MIDAZOLAM HCL 2 MG/2 ML SINGLE DOSE VIAL ONE (10:39)
[2023-06-25] MEDS ORDERED: PROPOFOL 20 ML ONE (10:39)
[2023-06-25] MEDS ORDERED: FENTANYL CITRATE/PF 50 MCG/ML VIAL ONE (10:39)
[2023-06-25] MEDS ORDERED: ceFAZolin SODIUM 1 GM VIAL ONE (10:40)
[2023-06-25] MEDS ORDERED: LIDOCAINE HCL/PF 2% SDV 5ML VIAL ONE (10:40)
[2023-06-25] MEDS ORDERED: SODIUM CHLORIDE 0.9% P/F 10 ML VIAL IJ ONE (10:40)
[2023-06-25] MEDS: ceFAZolin SODIUM 1 GM VIAL IVPB ONE (10:50)
[2023-06-25] MEDS: LIDOCAINE HCL 1%, 10 MG/ML (20ML VIAL) INF ONE ×2 (11:01)
[2023-06-25 13:48] VITALS: BP 151/68
[2023-06-25 13:55] VITALS: PULSE 75; RESP 18; TEMP 97.8
== END 2023-06-25 14:31 | disposition home or self-care (01) ==
LOC: JASU-SURG 04:10
PROVIDERS: ATTEND Surgery Vascular Surgery
PROC: 05HP33Z Insertion of Infusion Device into Right External Jugular Vein, Percutaneous Approach (ICD-10-PCS; 2023-06-25)
PROC: B513ZZA Fluoroscopy of Right Jugular Veins, Guidance (ICD-10-PCS; 2023-06-25)
PROC: 05PY33Z Removal of Infusion Device from Upper Vein, Percutaneous Approach (ICD-10-PCS; principal; 2023-06-25 11:00)
DX: T82.49XA Other complication of vascular dialysis catheter, initial encounter (principal); I12.0 Hypertensive chronic kidney disease with stage 5 chronic kidney disease or end stage renal disease; N18.6 End stage renal disease; Z99.2 Dependence on renal dialysis
CPT/HCPCS: 36578; C1751; 71045-TC-FY; 76000-TC-FY; 82962; 94760; C1750; J1644

== ENCOUNTER 2024-02-15 09:19 | Observation (INO) | payer OTHER ==
[2024-02-15] MEDS ORDERED: HEPARIN NA (PORCINE) 5,000 UNITS/ML 1ML VIAL IVPUSH ONE (11:15)
[2024-02-15 12:02] LABS: BASO % 0.6 % (0-2.0); HEMATOCRIT 35.6 % (35.4-49); HEMOGLOBIN 10.7 GM/dL (11.7-16.9); LYMPH % 14.1 % (8-40); MCH 32.7 pg (25.7-33.7); MCHC 30.2 g/dl (32.0-35.9); MEAN CELL VOLUME 108.5 fl (80-96); MEAN PLT VOLUME 8.5 fl (7.5-11.1); NEUT % 75.3 % (42.8-82.8); PLATELET COUNT 200 10^3/uL (134-434); RBC 3.28 M/mm3 (4.00-5.60); RDW 16.1 % (11.9-15.9); WHITE BLOOD COUNT 7.5 K/mm3 (4.0-10.0)
[2024-02-15 12:14] LABS: INR 0.96 (0.83-1.09)
[2024-02-15 12:17] LABS: ACTIVATED PTT 30.3 SECONDS (25.2-36.5)
[2024-02-15 12:18] LABS: CHLORIDE 102 mmol/L (98-107); POTASSIUM 4.3 mmol/L (3.5-5.1); SODIUM 137 mmol/L (136-145)
[2024-02-15 12:21] LABS: CALCIUM 9.2 mg/dL (8.5-10.1)
[2024-02-15 12:22] LABS: ALBUMIN 3.7 g/dl (3.4-5.0); ANION GAP 8 mmol/L (4-13); BLOOD UREA NITROGEN 54.6 mg/dL (7-18); CO2 26 mmol/L (21-32); GLUCOSE,RANDOM 134 mg/dL (74-106)
[2024-02-15 12:24] LABS: MAGNESIUM 2.2 mg/dL (1.8-2.4)
[2024-02-15 12:25] LABS: SGOT/AST 12 U/L (15-37); SGPT/ALT 7 U/L (13-61)
[2024-02-15 12:26] LABS: BILIRUBIN,TOTAL 0.5 mg/dL (0.2-1)
[2024-02-15 12:27] LABS: TOT PROT 6.8 g/dl (6.4-8.2)
[2024-02-15 12:28] LABS: ALK PHOS 136 U/L (45-117); PHOSPHOROUS 3.8 mg/dL (2.5-4.9)
[2024-02-15 12:36] LABS: CREATININE 9.6 mg/dL (0.55-1.3)
[2024-02-15] MEDS ORDERED: HEPARIN NA (PORCINE) 5,000 UNITS/ML 1ML VIAL IVPUSH SCH (13:30)
[2024-02-15] MEDS ORDERED: SODIUM CHLORIDE 250 ML IV PRN (13:30)
[2024-02-15 13:52] LABS: ANISOCYTOSIS 1+; MACROCYTOSIS 0
[2024-02-15 13:56] LABS: HIV INTERPRETATION NEGATIVE (NEGATIVE)
[2024-02-15 18:19] VITALS: BMI 49.6
[2024-02-16] MEDS: PANTOPRAZOLE 40 MG TABLET PO SCH (10:44)
[2024-02-16] MEDS: FUROSEMIDE 40 MG TABLET (FP) PO SCH (10:44)
[2024-02-16] MEDS: LOSARTAN POTASSIUM 25 MG TABLET PO SCH (10:45)
[2024-02-16] MEDS: TAMSULOSIN HCL 0.4 MG CAP PO SCH (10:45)
[2024-02-16] MEDS: amLODIPine BESYLATE 5 MG TABLET (FP) PO SCH (10:45)
[2024-02-16] MEDS: LIDOCAINE HCL 1%, 10 MG/ML (50 mL VIAL) SQ ONE (13:02)
[2024-02-16] MEDS: GABAPENTIN 300 MG CAPSULE PO SCH (14:18)
[2024-02-16] MEDS: TICAGRELOR 90 MG TABLET PO SCH (14:19)
[2024-02-17 09:47] VITALS: RESP 20
[2024-02-17] MEDS ORDERED: PATIENT'S OWN MEDICATION (NON-FORMULARY) (Linaclotide [Linzess] 290 MCG Capsule) PO SCH (10:00)
[2024-02-17] MEDS ORDERED: SODIUM CHLORIDE 250 ML IV PRN (10:12)
[2024-02-17] MEDS: EPOETIN ALFA-EPBX 4,000 UNIT/ML VIAL IVPUSH ONE (11:07)
[2024-02-17 11:22] LABS: HEMATOCRIT 34.8 % (35.4-49); HEMOGLOBIN 10.7 GM/dL (11.7-16.9); MCH 32.5 pg (25.7-33.7); MCHC 30.7 g/dl (32.0-35.9); MEAN CELL VOLUME 106.2 fl (80-96); MEAN PLT VOLUME 8.9 fl (7.5-11.1); PLATELET COUNT 179 10^3/uL (134-434); RBC 3.28 M/mm3 (4.00-5.60); RDW 16.2 % (11.9-15.9); WHITE BLOOD COUNT 6.3 K/mm3 (4.0-10.0)
[2024-02-17 11:44] LABS: CHLORIDE 104 mmol/L (98-107); POTASSIUM 3.9 mmol/L (3.5-5.1); SODIUM 139 mmol/L (136-145)
[2024-02-17 11:46] LABS: CALCIUM 8.9 mg/dL (8.5-10.1)
[2024-02-17 11:47] LABS: ALBUMIN 3.4 g/dl (3.4-5.0); ANION GAP 7 mmol/L (4-13); BLOOD UREA NITROGEN 57.1 mg/dL (7-18); CO2 28 mmol/L (21-32); GLUCOSE,RANDOM 161 mg/dL (74-106)
[2024-02-17 11:50] LABS: SGOT/AST 9 U/L (15-37); SGPT/ALT 8 U/L (13-61)
[2024-02-17 11:51] LABS: BILIRUBIN,TOTAL 0.5 mg/dL (0.2-1)
[2024-02-17 11:52] LABS: TOT PROT 6.1 g/dl (6.4-8.2)
[2024-02-17 11:53] LABS: ALK PHOS 138 U/L (45-117)
[2024-02-17 12:09] LABS: CREATININE 9.3 mg/dL (0.55-1.3)
[2024-02-17 12:54] VITALS: BP 107/57; TEMP 98.1
[2024-02-17 12:56] VITALS: PULSE 77
== END 2024-02-17 14:46 | disposition home or self-care (01) ==
LOC: JER 09:19 → JERBED 11:07 → UNDOADMIN 11:07 → JASUSAT 11:07 → SUATTDRO 11:07 → J5S 16:58 → JASUSAT 17:00 → J5S 02-16 09:48
PROC: 05PY0YZ Removal of Other Device from Upper Vein, Open Approach (ICD-10-PCS; principal; 2024-02-16)
PROC: 3E033GC Introduction of Other Therapeutic Substance into Peripheral Vein, Percutaneous Approach (ICD-10-PCS; 2024-02-16)
DX: Z49.01 Encounter for fitting and adjustment of extracorporeal dialysis catheter (principal); E11.22 Type 2 diabetes mellitus with diabetic chronic kidney disease; I12.9 Hypertensive chronic kidney disease with stage 1 through stage 4 chronic kidney disease, or unspecified chronic kidney disease; G61.0 Guillain-Barre syndrome; N18.9 Chronic kidney disease, unspecified; N40.0 Benign prostatic hyperplasia without lower urinary tract symptoms; E78.5 Hyperlipidemia, unspecified; H40.9 Unspecified glaucoma; Z88.8 Allergy status to other drugs, medicaments and biological substances
CPT/HCPCS: 36415; 71045-TC-FY; 80053; 83735; 84100; 85025; 85027; 85610; 85730; 86803; 86850; 86900; 86901; 87340; 87389; 93005; 93010; 96374; 99285-25; G0378; Q5106